=== PATIENT | female | born 1935 | race Caucasian/White ===

== ENCOUNTER → 2016-10-29 | Outpatient (CLI) | payer MEDICARE, BC ==
[2016-01-26 00:06] VITALS: BP 113/48
[~2016-10-29] MED LIST: ALLO300T PO; ASPI-630 PO; CHOL10003 PO; CRESTOR10 MG PO; FOLI0.8T33 PO; FURO40TA4 PO; LISI-338 PO; META-21 PO; METH4TAB2 PO; OMEG1CAP6 PO; OMEP20CA9 PO; POTA10TA31 PO
[2016-10-29 08:37] LABS: ALBUMIN 3.8 g/dL (3.4-5.0); ALBUMIN/GLOBULIN RATIO 1.1 (1.0-1.7); CALCIUM 9.3 mg/dL (8.5-10.1); CREATININE 1.3 mg/dL (0.6-1.0); GFR 39.2; POTASSIUM 3.9 mmol/L (3.5-5.1); TOTAL BILIRUBIN 0.4 mg/dL (0.2-1.0); TOTAL PROTEIN 7.4 g/dL (6.4-8.2)
== END | disposition home or self-care (01) ==
LOC: LAB 07:33
PROVIDERS: ATTEND Nurse Practitioner
DX: E78.5 Hyperlipidemia, unspecified (principal)
CPT/HCPCS: 36415; 80053; 80061

== ENCOUNTER 2016-11-06 10:31 | Emergency (ER) | payer MEDICARE, BC ==
[2016-11-06 10:35] VITALS: BP 125/54
--- NOTE | 2016-11-06 10:58 | PHYS DOC ---
Past History Past Medical History: Arthritis, GERD, High Cholesterol, Hypertension, Sciatica , UTI, Other Past Surgical History: Appendectomy, Cholecystectomy, Colectomy, Hysterectomy, Oophorectomy, Other Alcohol Use: None Drug Use: None Adult General Chief Complaint Chief Complaint: BACK PAIN OR INJURY [facility] Patient is a 81-year-old female with a three-week history of lower back pain that began spontaneously described as an ache. She's had in the past before which she takes Tylenol and Skelaxin which typically improve symptoms. She was seen 2 weeks ago by her primary care doctor and treated for UTI present on day 8 of of Macrobid. Although she admits she was never symptomatic with abdominal pain, dysuria, frequency or urgency. Her symptoms did improve. Days after starting antibiotics now return. She describes as a cramping 8 gets worse with bending over and walking. It's probably just on the left side not over the midline of the back. There is no bowel or bladder con's, no night sweats, no numbness and teething into her legs and no weakness. Patient denies a specific trauma although she says the pain is worse with rotational motion. Patient's pain presently about a 7 of 10 8 of 10 sitting here in the emergency department. Review of Systems Review of Systems Constitutional: Denies fever or chills [] Eyes: Denies change in visual acuity, redness, or eye pain [] HENT: Denies nasal congestion or sore throat [] Respiratory: Denies cough or shortness of breath [] Cardiovascular: No additional information not addressed in [facility] [] GI: Denies abdominal pain, nausea, vomiting, bloody stools or diarrhea [] : Denies dysuria or hematuria [] Musculoskeletal: Complains of lower back pain. Integument: Denies rash or skin lesions [] Neurologic: Denies headache, focal weakness or sensory changes [] Endocrine: Denies polyuria or polydipsia [] Allergies Allergies Allergies Coded Allergies Type Severity Reaction Last Updated Verified No Known Drug Allergies 03/02/15 No Physical Exam Physical Exam Constitutional: Well developed, well nourished, no acute distress, non-toxic appearance. [] HENT: Normocephalic, atraumatic,oropharynx moist, Eyes: PERRLA, EOMI, conjunctiva normal, no discharge. [] Neck: Normal range of motion, no tenderness, supple, no stridor. [] Cardiovascular:Heart rate regular rhythm, no murmur [] Lungs & Thorax: Bilateral breath sounds clear to auscultation [] Abdomen: Bowel sounds normal, soft, no tenderness, no masses, no pulsatile masses. [] Skin: Warm, dry, no erythema, no rash. [] Back: Patient has reproducible pain on the left erector spinae muscles of the lumbar spine. There is no rash, no focal tenderness to palpation over the midline of the T or L-spine. Extremities: No tenderness, no cyanosis, no clubbing, ROM intact, no edema. [] Neurologic: Alert and oriented X 3, normal motor function, normal sensory function, no focal deficits noted. She has normal proprioception strength lower extremities bilaterally 5 out of 5+ strength. +2 brisk capillary refill +2 peripheral pulses well [] Psychologic: Affect normal, judgement normal, mood normal. [] EKG EKG [] Radiology/Procedures Radiology/Procedures [] [place] [address] IMAGING REPORT Signed PATIENT: ARIADNA HO ACCOUNT: [id number] : 1935 LOCATION: ER AGE: 81 SEX: F EXAM STATUS: REG ER ORD. PHYSICIAN: ALEXANDREA ARMAS MD REASON: back pain PROCEDURE: LUMBAR SPINE 2-3V Lumbar spine, 3 views, 11/06/2016: History: Back pain There is a mild left convexity lumbar scoliosis. There are mild smooth concave endplate deformities at multiple levels. These appear to be chronic. There are moderate spurs in the upper lumbar and lower thoracic spine. There is moderate disc space narrowing at T12-L1 and L1-2. There are mild degenerative changes involving scattered facet joints. No acute fracture or dislocation is identified. IMPRESSION: 1. Mild to moderate scattered degenerative changes. 2. Mild lumbar scoliosis. 3. No acute bony abnormality is detected. DICTATED AND SIGNED BY: RICA MONTILLA MD DATE: 11/06/16 8506 CC: ALEXANDREA ARMAS MD; DOMINGO NÚÑEZ ~ Course & Med Decision Making Course & Med Decision Making Pertinent Labs and Imaging studies reviewed. (See chart for details) Patient presents with lower back pain. My back pain pneumonic considered. [] CRAFTI Cauda Equina Renal Stone AAA ruptured Fracture Tumor (TB, metastatic disease) Infection UTI, pyelonephritis, epidural abscess. Patient's spine symptoms have stabilized while they have been evaluated in the department and are appropriate for outpatient work up. No evidence of cauda equina, cord compression, infiltrative, or infectious etiology. Patient's x-ray demonstrates no potential fracture, patient on exam is normal, patient denies any fevers, night sweats, history of cancer would be metastatic in nature. Patient denies any UTI symptoms urine culture is pending patient still on antibiotics. She does not want to wait for urine culture results: Positive. Change antibiotics if appropriate. Assessment: Low back pain Disposition: PCP follow-up 12-24 hours for repeat evaluation if symptoms continue. Dragon Disclaimer Dragon Disclaimer This chart was dictated in whole or in part using Voice Recognition software in a busy, high-work load, and often noisy Emergency Department environment. It may contain unintended and wholly unrecognized errors or omissions. Departure Departure: Impression: Primary Impression: Back pain Disposition: HOME, SELF-CARE Condition: IMPROVED Referrals: DOMINGO NÚÑEZ (PCP) Patient Instructions: Back Exercises, Back Injury Prevention, Back Pain in Additional Instructions: Please return for any new or increasing symptoms, night sweats, new focal neurologic weakness or deficits or if you have any questions concerns. Please recur for the pain medications prescribed as they make you very sleepy possibly a fall risk. Please follow up with her primary care doctor in 48 hours if symptoms continue not improved. Scripts Hydrocodone Bit/Acetaminophen (HYDROCODONE-APAP 5-325 ) 1 Each Tablet 1 TAB PO PRN Q6HRS Y for PAIN for 3 Days, #10 TAB 0 Refills Prov: ALEXANDREA ARMAS MD 11/06/16 ALEXANDREA ARMAS MD Nov 06, 2016 10:58
[2016-11-06] MEDS ORDERED: HYDROmorphone PF 1 MG/ML DISP.SYRIN IM ONE (11:15)
--- NOTE | 2016-11-06 11:22 | RAD ---
Lumbar spine, 3 views, 11/06/2016: History: Back pain There is a mild left convexity lumbar scoliosis. There are mild smooth concave endplate deformities at multiple levels. These appear to be chronic. There are moderate spurs in the upper lumbar and lower thoracic spine. There is moderate disc space narrowing at T12-L1 and L1-2. There are mild degenerative changes involving scattered facet joints. No acute fracture or dislocation is identified. IMPRESSION: 1. Mild to moderate scattered degenerative changes. 2. Mild lumbar scoliosis. 3. No acute bony abnormality is detected.
[2016-11-06 11:26] LABS: BILIRUBIN,URINE NEG (NEG); CLARITY,URINE CLEAR; COLOR,URINE STRAW; GLUCOSE,URINE NEG (NEG)
[2016-11-06 11:27] LABS: NITRITE,URINE NEG (NEG); UROBILINOGEN,URINE 0.2 mg/dL (0.2 mg/dL)
[2016-11-06] MEDS ORDERED: HYDR-2758 PO (11:31)
== END 2016-11-06 11:35 | disposition home or self-care (01) ==
LOC: ER 10:31
DX: M54.5 Low back pain (principal); K21.9 Gastro-esophageal reflux disease without esophagitis; I10 Essential (primary) hypertension; E78.00 Pure hypercholesterolemia, unspecified; M19.90 Unspecified osteoarthritis, unspecified site; Z87.440 Personal history of urinary (tract) infections
CPT/HCPCS: 72100; 81003; 87086; 96372; 99285; J1170

== ENCOUNTER 2017-01-28 13:23 | Emergency (ER) | payer MEDICARE, BC ==
[~2017-01-28 13:23] MED LIST changes: +HYDR-2758 PO
[2017-01-28 13:34] VITALS: BP 130/65
--- NOTE | 2017-01-28 13:58 | RAD ---
Lumbar spine, 3 views, 01/28/2017: History: Back pain Comparison is made to a study from 11/06/2016. There is a mild lumbar scoliosis. The lumbar vertebral heights are well-maintained. There is mild narrowing of the L1-2 disc spaces well as multiple disc spaces in the lower thoracic spine. There are moderate scattered marginal spurs. There are mild degenerative changes involving scattered facet joints in the lumbar spine. There is a slight retrolisthesis at L2-3 due to facet joint arthropathy. Mild aortic calcific plaquing is present. IMPRESSION: 1. Mild to moderate multilevel degenerative changes. 2. No acute bony abnormality is detected.
--- NOTE | 2017-01-28 14:27 | PHYS DOC ---
General Chief Complaint: BACK PAIN - NO INJURY Stated Complaint: BACK SPASMS Time Seen by MD: 13:33 Source: patient, old records Exam Limitations: no limitations Problems: History of Present Illness Initial Comments Pt is 81/F to ED c/o back pain. Pt states last week she fell as her left knee buckled, fell forward hitting her head causing left facial bruising and LUE bruising. States she gets back spasms sometimes, today c/o severe 10/10 low back pain as she points to her right SI joint and lumbar spine. No leg weakness/saddle anesthesia/incontinence , says when her back gets bad she comes for her "shot." ED records indicate pt has been here once prior similar sx resolved with dilaudid 0.5mg IM. No other c /o, pt would like a shot and then discharge. Denies any MORALEZ for focal weakness resultant from the fall Timing/Duration: unsure Severity: severe Modifying Factors: improves with medication, worse with movement Associated Symptoms: other Allergies: Coded Allergies: No Known Drug Allergies (Unverified , 03/02/15) verified with the pt Past Medical History Medical History: no pertinent history Surgical History: noncontributory Social History Smoker: non-smoker Alcohol: none Drugs: none Review of Systems Constitutional: denies chills, denies fever EENTM: denies eye pain, denies blurred vision, denies ear discharge, denies nose congestion Respiratory: denies cough, denies shortness of breath Cardiovascular: denies chest pain, denies palpitations Gastrointestinal: denies abdominal pain, denies nausea, denies vomiting Genitourinary: denies dysuria, denies frequency, denies hematuria Musculoskeletal: see HPI, denies neck pain Psychiatric/Neurological: see HPI, denies headache, denies numbness, denies paresthesia, denies weakness Physical Exam General Appearance: no apparent distress Eyes: bilateral eye normal inspection, bilateral eye PERRL, bilateral eye EOMI Ear, Nose, Throat: hearing grossly normal, normal ENT inspection, other (NCAT, neg lopes/raccoon eyes, no ear/nose discharge no fluid behind TMs b/l) Neck: non-tender, supple Respiratory: normal breath sounds, no respiratory distress Cardiovascular: normal peripheral pulses, regular rate, rhythm Gastrointestinal: non tender, soft Back: no CVA tenderness, no vertebral tenderness Extremities: non-tender, normal inspection 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 PHYSICIAN: KAYY WEAVER DO REASON: fall, LBP PROCEDURE: LUMBAR SPINE 2-3V Lumbar spine, 3 views, 01/28/2017: History: Back pain Comparison is made to a study from 11/06/2016. There is a mild lumbar scoliosis. The lumbar vertebral heights are well-maintained. There is mild narrowing of the L1-2 disc spaces well as multiple disc spaces in the lower thoracic spine. There are moderate scattered marginal spurs. There are mild degenerative changes involving scattered facet joints in the lumbar spine. There is a slight retrolisthesis at L2-3 due to facet joint arthropathy. Mild aortic calcific plaquing is present. IMPRESSION: 1. Mild to moderate multilevel degenerative changes. 2. No acute bony abnormality is detected. DICTATED AND SIGNED BY: RICA MONTILLA MD DATE: 01/28/17 8138 CC: DOMINGO NÚÑEZ; KAYY WEAVER DO ~ UA unremarkable Pt advised she needs to f/u with PCP for future occurrances. Departure Time of Disposition: 14:45 Disposition: HOME, SELF-CARE Diagnosis: fall, low back strain Condition: GOOD Patient Instructions: Fall Prevention and Home Safety, [id number], Low Back Strain with Rehab-[facility] Additional Instructions: Take care with standing and walking, use a cane or assisted device as needed to prevent future falls. No driving or operating machinery while under the influence of sedative medication. Continue current medications. Heating pad 20 minutes at a time 4-6 times daily followed by gentle stretching. Take care not to fall asleep on the heating pad as you may burning herself. Follow-up with your doctor on Tuesday for recheck and physical therapy for further evaluation as needed. Return to ED with new or changing symptoms. KAYY WEAVER DO Jan 28, 2017 14:27
[2017-01-28 14:53] LABS: BACTERIA,URINE 0 /HPF (0-FEW); BILIRUBIN,URINE NEG (NEG); CLARITY,URINE CLEAR; COLOR,URINE YELLOW; GLUCOSE,URINE NEG (NEG); HYALINE CASTS, URINE OCC /HPF; NITRITE,URINE NEG (NEG); RBC,URINE 0 /HPF (0-2); SQUAMOUS EPITHELIAL CELL,UR OCC /LPF; UROBILINOGEN,URINE 0.2 mg/dL (0.2 mg/dL); WBC,URINE OCC /HPF (0-4)
[2017-01-28] MEDS ORDERED: HYDROmorphone PF 1 MG/ML DISP.SYRIN IM ONE (15:00)
== END 2017-01-28 15:24 | disposition home or self-care (01) ==
LOC: ER 13:23
DX: S39.012A Strain of muscle, fascia and tendon of lower back, initial encounter (principal); W18.09XA Striking against other object with subsequent fall, initial encounter; Y93.89 Activity, other specified; Y99.8 Other external cause status; Y92.89 Other specified places as the place of occurrence of the external cause
CPT/HCPCS: 72100; 81001; 96372; J1170; 99285-25

== ENCOUNTER 2017-06-13 11:18 | Emergency (ER) | payer MEDICARE, BC ==
[~2017-06-13] VITALS: Ht 162.6 cm; Wt 76.7 kg
--- NOTE | 2017-06-13 11:34 | PHYS DOC ---
General Chief Complaint: BACK PAIN OR INJURY Stated Complaint: BACK PAIN Time Seen by MD: 11:31 Source: patient, old records Exam Limitations: no limitations Problems: History of Present Illness Initial Comments Patient is an 82-year-old female who comes to the ED for back pain recurrence. Patient states that prior to arrival she was reaching to a high cabinet in the kitchen for a dish when she felt a twinge in her right mid back. She has had similar episodes like this before where she will get muscle spasms and has had several ED visits. She states symptoms are identical to prior exacerbations she denies any trauma or injury. No leg weakness no saddle anesthesia and no bowel or bladder symptoms. Pain is described as sharp and stabbing the 9 on a pain scale worse with certain movements better with some positions. Patient points to her right upper paraspinal region as a localization. No pre-arrival treatment no other complaints. Timing/Duration: 1-3 hours Severity: severe Modifying Factors: worse with movement, improves with rest Associated Symptoms: other Allergies: Coded Allergies: No Known Drug Allergies (Unverified , 03/02/15) verified with the pt Past Medical History Medical History: other (CHF, pneumonia, back spasms) Surgical History: noncontributory Social History Smoker: non-smoker Alcohol: none Drugs: none Review of Systems Constitutional: denies chills, denies diaphoresis, denies fever, denies malaise Respiratory: denies cough, denies shortness of breath Cardiovascular: denies chest pain, denies palpitations, denies syncope Gastrointestinal: denies abdominal pain, denies nausea, denies vomiting Genitourinary: denies dysuria, denies frequency, denies hematuria Musculoskeletal: see HPI, denies joint swelling, denies neck pain Psychiatric/Neurological: denies headache, denies numbness, denies paresthesia , denies pre-existing deficit, denies tingling, denies weakness Hematologic/Lymphatic: denies blood clots, denies easy bleeding, denies easy bruising Physical Exam General Appearance: WD/WN, no apparent distress Ear, Nose, Throat: hearing grossly normal, normal ENT inspection Neck: non-tender, supple Respiratory: normal breath sounds, no respiratory distress Cardiovascular: normal peripheral pulses, regular rate, rhythm Gastrointestinal: non tender, soft Back: no CVA tenderness, no vertebral tenderness Extremities: non-tender, normal inspection 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 Patient agrees to follow-up with Michael Lynch and expressed agreement and understanding with the treatment plan. Departure Time of Disposition: 12:43 Disposition: 01 HOME, SELF-CARE Diagnosis: lumbar strain Condition: GOOD Patient Instructions: Low Back Strain with Rehab-Sports[facility] Additional Instructions: Please review the patient education materials given by ED staff. Starting tomorrow may use heating pad 15 minutes 4-6 times daily followed by gentle stretching. [id number] ibuprofen for baseline discomfort. Prescription: Comptche 5 mg quantity 10 Follow-up with your doctor this week for recheck. Return to ED with new or changing symptoms. MICHAEL WEAVER DO Jun 13, 2017 11:34
[2017-06-13] MEDS ORDERED: HYDROcodone/APAP 7.5/325MG 1 TAB TABLET PO ONE (12:10)
[2017-06-13] MEDS ORDERED: HYDR-971 PO (12:41)
[2017-06-13 12:45] VITALS: BP 140/66
== END 2017-06-13 12:50 | disposition home or self-care (01) ==
LOC: ER 11:18
DX: S39.012A Strain of muscle, fascia and tendon of lower back, initial encounter (principal); I50.9 Heart failure, unspecified; X50.9XXA Other and unspecified overexertion or strenuous movements or postures, initial encounter; Y93.89 Activity, other specified; Y99.8 Other external cause status; Y92.090 Kitchen in other non-institutional residence as the place of occurrence of the external cause
CPT/HCPCS: 99283

== ENCOUNTER → 2017-08-11 | Outpatient (CLI) | payer MEDICARE, BC ==
[~2017-08-11] MED LIST changes: +HYDR-971 PO
--- NOTE | 2017-08-11 16:59 | RAD ---
Carotid ultrasound, 08/11/2017: History: Carotid stenosis Duplex evaluation of the carotid arteries in the neck was performed including grayscale, color-flow and spectral Doppler analysis. There is mild intimal thickening in the common carotid arteries with mild smooth plaquing at the carotid bifurcations. The peak systolic velocity in the right internal carotid artery is 96 cm/s with an end-diastolic velocity of 22 cm/s. The internal carotid to common carotid artery ratio on the right is 1.1. On the left the peak systolic velocity in the internal carotid artery is 99 cm/s with an end-diastolic velocity of 20 cm/s. The internal carotid to common carotid artery ratio on the left is 1.1. These Doppler findings do not suggest significant stenosis. Antegrade flow is present in both vertebral arteries in the neck. IMPRESSION: Mild smooth plaquing at both carotid bifurcations with underlying luminal narrowing in the 0-50% diameter range bilaterally. Note: Stenosis calculations for CTA, MRA and conventional angiography are based upon determination of the distal ICA diameter in accordance with the NASCET methodology. Stenosis calculations for Doppler studies are derived from validated velocity criteria which are known to correlate with NASCET methodology of determining stenosis.
== END | disposition home or self-care (01) ==
LOC: US 13:22
PROVIDERS: ATTEND Nurse Practitioner
DX: I65.22 Occlusion and stenosis of left carotid artery (principal); I13.0 Hypertensive heart and chronic kidney disease with heart failure and stage 1 through stage 4 chronic kidney disease, or unspecified chronic kidney disease; I50.9 Heart failure, unspecified; N18.3 Chronic kidney disease, stage 3 (moderate)
CPT/HCPCS: 93880

== ENCOUNTER → 2017-09-08 | Outpatient (CLI) | payer MEDICARE, BC ==
[2017-09-08 14:45] LABS: BASO % 0 % (0-3); EOS # 0.1 x10^3/uL (0.0-0.7); EOS % 2 % (0-3); HEMATOCRIT 37.7 % (36.0-47.0); HEMOGLOBIN 12.7 g/dL (12.0-15.5); LYMPH # 1.9 x10^3/uL (1.0-4.8); LYMPH % 29 % (24-48); MEAN CORPUSCULAR HEMOGLOBIN 32 pg (25-35); MEAN CORPUSCULAR HGB CONC 34 g/dL (31-37); MEAN CORPUSCULAR VOLUME 94 fL (79-100); MONO # 0.5 x10^3/uL (0.0-1.1); MONO % 8 % (0-9); NEUT # 3.9 x10^3uL (1.8-7.7); NEUT % 61 % (31-73); PLATELET COUNT 157 x10^3/uL (140-400); RED BLOOD COUNT 4.01 x10^6/uL (3.50-5.40); RED CELL DISTRIBUTION WIDTH 15.3 % (11.5-14.5); WHITE BLOOD COUNT 6.5 x10^3/uL (4.0-11.0)
[2017-09-08 14:51] LABS: ALBUMIN 3.6 g/dL (3.4-5.0); CALCIUM 8.9 mg/dL (8.5-10.1); CREATININE 1.1 mg/dL (0.6-1.0); GFR 47.4; PHOSPHORUS 3.5 mg/dL (2.6-4.7); POTASSIUM 3.6 mmol/L (3.5-5.1); URIC ACID 3.7 mg/dL (2.6-6.0)
[2017-09-09 07:12] LABS: CALCIUM PTH 8.9 mg/dL (8.7-10.3); PTH INTACT 54 pg/mL (15-65)
== END | disposition home or self-care (01) ==
LOC: LAB 13:25
PROVIDERS: ATTEND Internal Medicine Nephrology
DX: I13.0 Hypertensive heart and chronic kidney disease with heart failure and stage 1 through stage 4 chronic kidney disease, or unspecified chronic kidney disease (principal); I50.32 Chronic diastolic (congestive) heart failure; N18.3 Chronic kidney disease, stage 3 (moderate); E78.5 Hyperlipidemia, unspecified; E79.0 Hyperuricemia without signs of inflammatory arthritis and tophaceous disease; Z68.31 Body mass index [BMI] 31.0-31.9, adult
CPT/HCPCS: 36415; 80069; 83970; 84550; 85025

== ENCOUNTER → 2017-10-13 | Outpatient (CLI) | payer MEDICARE, BC ==
--- NOTE | 2017-10-13 16:55 | RAD ---
Bilateral knees, 4 views, 10/13/2017: HISTORY: Fall, knee pain There is mild narrowing of both knee joints with moderate marginal spurring. There is mild degenerative change at both patellofemoral articulations. No fracture or dislocation is identified. IMPRESSION: 1. Mild to moderate bilateral degenerative change. 2. No acute bony abnormality is detected. Electronically signed by: Toni Curry MD (10/13/2017 4:51 PM) [facility]
--- NOTE | 2017-10-13 16:55 | RAD ---
Bilateral knees, 4 views, 10/13/2017: HISTORY: Fall, knee pain There is mild narrowing of both knee joints with moderate marginal spurring. There is mild degenerative change at both patellofemoral articulations. No fracture or dislocation is identified. IMPRESSION: 1. Mild to moderate bilateral degenerative change. 2. No acute bony abnormality is detected. Electronically signed by: Toni Curry MD (10/13/2017 4:51 PM) [facility]
--- NOTE | 2017-10-13 16:55 | RAD ---
Bilateral knees, 4 views, 10/13/2017: HISTORY: Fall, knee pain There is mild narrowing of both knee joints with moderate marginal spurring. There is mild degenerative change at both patellofemoral articulations. No fracture or dislocation is identified. IMPRESSION: 1. Mild to moderate bilateral degenerative change. 2. No acute bony abnormality is detected. Electronically signed by: Toni Curry MD (10/13/2017 4:51 PM) [facility]
== END | disposition home or self-care (01) ==
LOC: PMG 09:34
PROVIDERS: ATTEND Physician Assistant
DX: M17.0 Bilateral primary osteoarthritis of knee (principal); M19.072 Primary osteoarthritis, left ankle and foot; M19.032 Primary osteoarthritis, left wrist
CPT/HCPCS: 73100; 73560; 73610

== ENCOUNTER 2017-11-29 07:43 | Emergency (ER) | payer MEDICARE, BC ==
[~2017-11-29] VITALS: Ht 162.6 cm; Wt 77.1 kg
[2017-11-29] MEDS ORDERED: HYDR-971 PO (08:19)
[2017-11-29] MEDS ORDERED: METH4TAB2 PO (08:19)
--- NOTE | 2017-11-29 08:19 | PHYS DOC ---
Past History Past Medical History: CHF, Hypertension, Pneumonia Past Surgical History: Other Alcohol Use: None Drug Use: None Adult General Chief Complaint Chief Complaint: BACK PAIN - NO INJURY HPI HPI 82-year-old female patient with history of previous episodes of low back muscle spasm and return ER visit because of this problem complaining of low back pain since yesterday as a constant throbbing pain like her previous episodes of muscle spasm of her back. Patient rated her pain 9/10 and denies focal neuro deficit, urine and bowel incontinence, fever and chills, abdominal pain. She states she took oral trauma muscle relaxant without improvement of her pain. Review of Systems Review of Systems Constitutional: Denies fever or chills [] Eyes: Denies change in visual acuity, redness, or eye pain [] HENT: Denies nasal congestion or sore throat [] Respiratory: Denies cough or shortness of breath [] Cardiovascular: No additional information not addressed in HPI [] GI: Denies abdominal pain, nausea, vomiting, bloody stools or diarrhea [] : Denies dysuria or hematuria [] Musculoskeletal: Reports back pain, denies joint pain [] Integument: Denies rash or skin lesions [] Neurologic: Denies headache, focal weakness or sensory changes [] Endocrine: Denies polyuria or polydipsia [] All other systems were reviewed and found to be within normal limits, except as documented in this note. Current Medications Current Medications Current Medications Medications (Trade) Dose Ordered Sig/Kristine Start Time Stop Time Status Last Admin Dose Admin Fentanyl Citrate (Fentanyl 2ml Vial) 50 mcg 1X ONCE 11/29/17 08:15 11/29/17 08:16 UNV Allergies Allergies Allergies Coded Allergies Type Severity Reaction Last Updated Verified No Known Drug Allergies 03/02/15 No Physical Exam Physical Exam Constitutional: Well developed, well nourished, mild distress, non-toxic appearance. [] HENT: Normocephalic, atraumatic Eyes: PERRLA, EOMI, conjunctiva normal, no discharge. [] Neck: Normal range of motion, no tenderness, supple, no stridor. [] Cardiovascular:Heart rate regular rhythm, no murmur [] Lungs & Thorax: Bilateral breath sounds clear to auscultation [] Abdomen: Bowel sounds normal, soft, no tenderness, no masses, no pulsatile masses. [] Skin: Warm, dry, no erythema, no rash. [] Back: No midline tenderness, right paraspinal muscular spasm and mild tenderness , limited range of motion because of pain, no CVA tenderness. [] Extremities: No tenderness, no cyanosis, no clubbing, ROM intact, no edema. [] Neurologic: Alert and oriented X 3, normal motor function, normal sensory function, no focal deficits noted. [] Psychologic: Affect normal, judgement normal, mood normal. [] EKG EKG [] Radiology/Procedures Radiology/Procedures [] Course & Med Decision Making Course & Med Decision Making discharge: I've spoken with the patient and/or caregivers. I've explained the patient's condition, diagnosis and treatment plan based on information available to me at this time. I've answered the patient's and/or caregivers questions and addressed any concerns. The patient and/or caregivers have a good understanding the patient's diagnosis, condition and treatment plan as can be expected at this point. Vital signs have been stabilized. The patient's condition is stable for discharge from the emergency department. The patient will pursue further outpatient evaluation with her primary care provider or other designated consulting physician as outlined in the discharge instructions. Patient and/or caregivers are agreeable to this plan of care and follow-up instructions have been explained in detail. The patient and/or caregivers have received these instructions in written format and expressed understanding of these discharge instructions. The patient and her caregivers are aware that if any significant change in condition or worsening of symptoms should prompt him to immediately return to this of the closest emergency department. If an emergent department is not readily available I would encourage him to call 911. Alessandro Disclaimer Dragon Disclaimer This electronic medical record was generated, in whole or in part, using a voice recognition dictation system. Departure Departure: Impression: Primary Impression: Acute lumbar myofascial strain Additional Impressions: Lumbar paraspinal muscle spasm Urinary tract infection Disposition: HOME, SELF-CARE (At 0830) Condition: IMPROVED Referrals: DOMINGO NÚÑEZ (PCP) Patient Instructions: Lumbosacral Strain, Urinary Tract Infection Additional Instructions: Apply ice on your back Follow-up with your primary care physician in 3-5 days Return to ER if not getting better Scripts Ciprofloxacin Hcl (CIPRO) 250 Mg Tablet 1 TAB PO BID, #6 TAB Prov: BESS MONTE MD 11/29/17 Methylprednisolone (MEDROL) 4 Mg Tab.ds.pk 1 PKG PO UD, #1 PKG Prov: BESS MONTE MD 11/29/17 Hydrocodone Bit/Acetaminophen (NORCO 5-325 TABLET) 1 Each Tablet 1 TAB PO PRN Q6HRS PRN for PAIN, #14 TAB 0 Refills Prov: BESS MONTE MD 11/29/17 Problem Qualifiers BESS MONTE MD Nov 29, 2017 08:19
[2017-11-29] MEDS ORDERED: CIPR250T30 PO (08:23)
[2017-11-29 08:43] LABS: BILIRUBIN,URINE NEG (NEG); CLARITY,URINE CLEAR; COLOR,URINE YELLOW
[2017-11-29 08:44] LABS: BACTERIA,URINE 0 /HPF (0-FEW); GLUCOSE,URINE NEG (NEG); HYALINE CASTS, URINE OCC /HPF; NITRITE,URINE NEG (NEG); RBC,URINE 0 /HPF (0-2); SQUAMOUS EPITHELIAL CELL,UR OCC /LPF; UROBILINOGEN,URINE 0.2 mg/dL (0.2 mg/dL); WBC,URINE 0 /HPF (0-4)
[2017-11-29 08:50] VITALS: BP 124/56
== END 2017-11-29 08:55 | disposition home or self-care (01) ==
LOC: ER 07:43
DX: S39.012A Strain of muscle, fascia and tendon of lower back, initial encounter (principal); N39.0 Urinary tract infection, site not specified; I11.0 Hypertensive heart disease with heart failure; I50.9 Heart failure, unspecified; X58.XXXA Exposure to other specified factors, initial encounter; Y93.89 Activity, other specified; Y99.8 Other external cause status; Y92.89 Other specified places as the place of occurrence of the external cause
CPT/HCPCS: 81001; 96372; 99284; J3010; 87086

== ENCOUNTER 2017-12-09 09:18 | Emergency (ER) | payer MEDICARE, BC ==
[~2017-12-09] VITALS: Ht 162.6 cm; Wt 85.7 kg
[~2017-12-09 09:18] MED LIST changes: +CIPR250T30 PO
[2017-12-09 09:23] VITALS: BP 147/65
[2017-12-09] MEDS ORDERED: diazePAM 5 MG TABLET PO ONE (09:45)
[2017-12-09] MEDS ORDERED: diazePAM 2 MG TABLET PO ONE (10:10)
[2017-12-09] MEDS ORDERED: MORPHINE SULFATE 5 MG/ML SYRINGE. IM ONE (10:10)
[2017-12-09] MEDS ORDERED: DIAZ2TAB PO (10:43)
--- NOTE | 2017-12-09 10:58 | ED.ADGEN ---
Past History Past Medical History: CHF, Hypertension, Pneumonia, Renal Disease Past Surgical History: Other Alcohol Use: None Drug Use: None Adult General HPI HPI Patient is a 82 year old female who presents with back pain. Patient complains of pain over the right posterior rib cage. She did not have any recent trauma. She has been having this pain for several weeks. She has no recent illness, fever, cough. She was evaluated in this ER already for the exact same symptoms. Review of Systems Review of Systems Constitutional: Denies fever or chills Eyes: Denies change in visual acuity HENT: Denies nasal congestion Respiratory: Denies cough or shortness of breath Cardiovascular: No additional information GI: Denies abdominal pain, nausea : Denies dysuria or hematuria Musculoskeletal: Denies other joint pain Integument: Denies rash Neurologic: Denies headache Endocrine: Denies polyuria All other systems were reviewed and found to be within normal limits, except as documented in this note. Current Medications Current Medications Current Medications Medications (Trade) Dose Ordered Sig/Kristine Start Time Stop Time Status Last Admin Dose Admin Diazepam (Valium) 2 mg 1X ONCE 12/09/17 10:10 12/09/17 10:11 DC 12/09/17 09:45 2 MG Morphine Sulfate (Morphine 5mg Syringe) 5 mg 1X ONCE 12/09/17 10:10 12/09/17 10:11 DC 12/09/17 09:46 5 MG Allergies Allergies Allergies Coded Allergies Type Severity Reaction Last Updated Verified No Known Drug Allergies 03/02/15 No Physical Exam Physical Exam Constitutional: Well developed, well nourished, no acute distress HENT: Normocephalic, atraumatic, bilateral external ears normal Eyes: PERRLA, EOMI, conjunctiva normal Neck: Normal range of motion, no tenderness Cardiovascular:Heart rate regular rhythm Lungs & Thorax: Bilateral breath sounds clear Abdomen: Bowel sounds normal, soft Skin: Warm, dry, no erythema Back: No tenderness, + point tenderness over right posterior rib cage. palpation to this area reproduces the patient's presenting symptoms Extremities: No edema Neurologic: Alert and oriented X 3 Psychologic: Affect normal Current Patient Data Vital Signs Vital Signs Date Time Temp Pulse Resp B/P (MAP) Pulse Ox O2 Delivery O2 Flow Rate FiO2 12/09/17 09:23 Room Air 12/09/17 09:23 97.6 74 20 98 EKG EKG [] Radiology/Procedures Radiology/Procedures [] Course & Med Decision Making Course & Med Decision Making Pertinent Labs and Imaging studies reviewed. (See chart for details) Patient is seen and examined. She was evaluated in this ER on 11/19 for the exact same symptoms. At that time, she was treated with cipro for UTI although urine was not overtly infected. She was also seen in f/u by her PCP and did discuss possible need for physical therapy although this has not yet been pursued. Ddx includes kidney stone, UTI, MSK pain, aortic dissection, rib fracture. Already treated for UTI and no symptoms. no hematuria. No severe pain. Not significantly hypertensive. Physical exam positive for point tenderness as described above. Could represent occult rib fx but tx would not change. Vicodin at home has not been relieving her pain. Plan in ER today is to give meds for sx control and re-assess. 10:50: Patient currently much improved and able to move/ambulate better when compared to admission. Her is present to drive her home today. Plan is for d/c and patient is agreeable. She is given some valium to use at home as needed for muscle spasms. use of this medication as described and fall precautions are also reviewed with the patient. All of her questions are answered prior to discharge home. Final Impression Final Impression Musculoskeletal Back Pain Alessandro Disclaimer Alessandro Disclaimer This electronic medical record was generated, in whole or in part, using a voice recognition dictation system. DEDE SEAMAN DO Dec 09, 2017 10:58
== END 2017-12-09 10:45 | disposition home or self-care (01) ==
LOC: ER 09:18
DX: M54.89 Other dorsalgia (principal); R07.81 Pleurodynia; I11.0 Hypertensive heart disease with heart failure; I50.9 Heart failure, unspecified; N28.9 Disorder of kidney and ureter, unspecified
CPT/HCPCS: 96372; 99283; J2270

== ENCOUNTER → 2017-12-16 | Outpatient (CLI) | payer MEDICARE, BC ==
[2017-12-09 09:23] VITALS: BP 147/65
[~2017-12-16] MED LIST changes: +DIAZ2TAB PO
--- NOTE | 2017-12-21 13:52 | RAD ---
3d digital tomography Bilateral History: Routine screening Technique: Bilateral 3d digital tomographic views were obtained. In addition, CAD - computer aided detection was utilized. Comparison: 10/07/2015, 09/23/2014, 09/11/2013. Findings: Breast Tissue Density C : The breast tissue is heterogeneously dense. Scattered fibroglandular elements may obscure underlying pathology. There are no suspicious masses, microcalcifications or areas of architectural distortion. Impression: No suspicious findings. BI-RADS Category 1: Negative. Recommendation: In the absence of new clinical symptoms or change in physical exam, annual screening mammography is recommended. The patient will receive a letter with the results in the mail. Your mammogram demonstrates that you have dense breast tissue, which could hide abnormalities, and if you have other risk factors for breast cancer that have been identified, you might benefit from supplemental screening tests that may be suggested by your ordering physician. Dense breast tissue, in and of itself, is a relatively common condition. This information is not provided to cause undue concern, but rather to raise your awareness and to promote discussion with your physician regarding the presence of other risk factors, in addition to dense breast tissue. A report of your mammography results will be sent to you and your physician. You should contact your physician if you have any questions or concerns regarding this report. A mammogram does not have 100% sensitivity and therefore a negative imaging study should not delay further work up of a suspicious abnormality. Patient information is entered into the [facility] reminder system using [employer] with a target due date for the next screening mammogram. The patient will receive a reminder. "Our facility is accredited by the [employer] Mammography Program."
== END | disposition home or self-care (01) ==
LOC: MAMMO 14:41
PROVIDERS: ATTEND Physician Assistant
DX: Z12.31 Encounter for screening mammogram for malignant neoplasm of breast (principal); I13.0 Hypertensive heart and chronic kidney disease with heart failure and stage 1 through stage 4 chronic kidney disease, or unspecified chronic kidney disease; I50.9 Heart failure, unspecified; N18.3 Chronic kidney disease, stage 3 (moderate); E78.2 Mixed hyperlipidemia; E78.00 Pure hypercholesterolemia, unspecified; K21.9 Gastro-esophageal reflux disease without esophagitis; Z90.722 Acquired absence of ovaries, bilateral; Z90.49 Acquired absence of other specified parts of digestive tract; Z90.710 Acquired absence of both cervix and uterus
CPT/HCPCS: 77063; 77067

== ENCOUNTER → 2018-02-03 | Outpatient (CLI) | payer MEDICARE, BC ==
[2018-02-03 09:18] LABS: ALBUMIN 3.6 g/dL (3.4-5.0); ALBUMIN/GLOBULIN RATIO 1.1 (1.0-1.7); CALCIUM 9.3 mg/dL (8.5-10.1); CREATININE 1.2 mg/dL (0.6-1.0); GFR 42.9; TOTAL BILIRUBIN 0.5 mg/dL (0.2-1.0); TOTAL PROTEIN 6.9 g/dL (6.4-8.2)
== END | disposition home or self-care (01) ==
LOC: LAB 07:53
PROVIDERS: ATTEND Nurse Practitioner
DX: E78.5 Hyperlipidemia, unspecified (principal)
CPT/HCPCS: 36415; 80053; 80061

== ENCOUNTER 2018-03-02 15:33 | Emergency (ER) | payer MEDICARE, BC ==
--- NOTE | 2018-03-02 15:50 | PHYS DOC ---
Past History Past Medical History: CHF, Hypertension, Pneumonia, Renal Disease Past Surgical History: Other Alcohol Use: None Drug Use: None Adult General HPI HPI Patient is an 82-year-old female with a past history of recurrent, chronic back pain who presents to the emergency department for evaluation. She states she is having spasms in her left lower back, which is exactly same as her prior recurrent episodes of back pain. She states this episode started this morning. She states normally a "cortisone shot" helps her. She denies any incontinence, saddle anesthesia, numbness, weakness. She is able to family without significant difficulty. She denies any abdominal pain. She has not had any fevers or chills or any recent injuries. Movement and palpation of her left back worsens her pain. There are no alleviating factors to her symptoms. Review of Systems Review of Systems Constitutional: Denies fever or chills [] Respiratory: Denies cough or shortness of breath [] Cardiovascular: The patient denies any shortness of breath, chest pain, palpitations, or orthopnea[] GI: Denies abdominal pain, nausea, vomiting, bloody stools or diarrhea [] : Denies dysuria or hematuria [] Musculoskeletal: Denies back pain or joint pain [] Integument: Denies rash or skin lesions [] Neurologic: Denies headache, focal weakness or sensory changes , denies incontinence, numbness, or weakness.[] Endocrine: Denies polyuria or polydipsia [] Current Medications Current Medications Current Medications Medications (Trade) Dose Ordered Sig/[facility] Start Time Stop Time Status Last Admin Dose Admin Dexamethasone Sodium Phosphate (Decadron) 4 mg 1X ONCE 03/02/18 16:00 03/02/18 16:01 UNV Diazepam (Valium) 5 mg 1X ONCE 03/02/18 16:00 03/02/18 16:01 UNV Allergies Allergies Allergies Coded Allergies Type Severity Reaction Last Updated Verified No Known Drug Allergies 03/02/15 No Physical Exam Physical Exam PHYSICAL EXAM: CONSTITUTIONAL: Well developed, well nourished. The patient is nontoxic- appearing, appears very pleasant. HEAD: normocephalic, atraumatic EENT: PERRL, EOMI. Conjunctivae normal color, sclerae non-icteric; moist mucous membranes. NECK: Supple, non-tender; no meningismus. LUNGS: Lungs CTA, breathing even and unlabored. Normal air movement. HEART: Regular rate and rhythm, no murmur CHEST: No deformity; non-tender ABDOMEN: The abdomen is soft, and non-tender, no masses or bruits. They aorta is not palpable and there is no exam evidence of aortic aneurysm. EXTREM: Normal ROM; no deformity, no calf tenderness. Normal pulses palpable in all extremities. There is no pedal edema. SKIN: No rash; no diaphoresis NEURO: Alert; normal speech and cognition; CN's grossly intact; strength grossly intact without focal deficit. BACK: No CVA TTP. There is mild tenderness to palpation to the soft tissues of the left lateral lower lumbar spine, and left lower sacral area. There is no midline vertebral tenderness to palpation or step-off. EKG EKG [] Radiology/Procedures Radiology/Procedures [] Course & Med Decision Making Course & Med Decision Making 4:30 PM: Patient's prior spinal imaging has been reviewed. She is feeling better at this time. She is ambulatory with a stable gait. I discussed home care plan, the need for close PCP follow-up and return precautions. Dragon Disclaimer Dragon Disclaimer This electronic medical record was generated, in whole or in part, using a voice recognition dictation system. Departure Departure: Impression: Primary Impression: Back pain Disposition: 01 HOME, SELF-CARE Condition: STABLE Referrals: DOMINGO NÚÑEZ (PCP) Patient Instructions: Back Pain, Adult Additional Instructions: Acetaminophen 650 mg every 6 hours may help improve your symptoms. Applying a heating pad to the affected area may help improve your symptoms. The prescribed medications may cause drowsiness-use caution while taking. Scripts Diazepam (VALIUM) 2 Mg Tablet 2 MG PO TID PRN for MUSCLE SPASMS, #15 TAB Prov: LUIS EDUARDO PATEL MD 03/02/18 LUIS EDUARDO PATEL MD Mar 02, 2018 15:50
[2018-03-02] MEDS ORDERED: DEXAMETHASONE SOD PHOS 4 MG/ML VIAL IM ONE (16:00)
[2018-03-02] MEDS ORDERED: diazePAM 5 MG TABLET PO ONE (16:00)
[2018-03-02 16:09] VITALS: BP 145/62
[2018-03-02] MEDS ORDERED: DIAZ2TAB PO (16:30)
== END 2018-03-02 16:36 | disposition home or self-care (01) ==
LOC: ER 15:33
DX: G89.29 Other chronic pain (principal); M54.5 Low back pain; I11.0 Hypertensive heart disease with heart failure; I50.9 Heart failure, unspecified
CPT/HCPCS: 96372; 99283; J1100

== ENCOUNTER 2018-05-14 16:38 | Emergency (ER) | payer MEDICARE, BC ==
[~2018-05-14] VITALS: Ht 162.6 cm; Wt 80.0 kg
[~2018-05-14 16:38] MED LIST changes: +HYDR-2155 PO; -HYDR-2758 PO; +HYDR-3165 PO; -HYDR-971 PO
[2018-05-14 17:07] VITALS: BP 137/70
[2018-05-14] MEDS ORDERED: CIPR250T30 PO (17:54)
[2018-05-14] MEDS ORDERED: MAGN296S9 PO (17:54)
[2018-05-14] MEDS ORDERED: HYDR-3165 PO (17:54)
--- NOTE | 2018-05-14 17:55 | PHYS DOC ---
Past History Past Medical History: Heart Disease, Hypertension Past Surgical History: Appendectomy, Cholecystectomy, Hysterectomy Smoking: Non-smoker Alcohol Use: None Drug Use: None Adult General Chief Complaint Chief Complaint: HIP PAIN HPI HPI Patient is a 82 year old female who presents with complaining of right hip and back area pain. Patient states she has had frequent cough for about 10 days and complaining of pain in right hip and flank area at the same time with episodes of cough. Patient states her cough improved with medication given by her primary care physician but her pain is not getting better. Patient complaining of constant right groin pain that getting force with movement and cough. Patient denies fever and chills, focal neuro deficit, fall and injury, urinary symptom. Review of Systems Review of Systems Constitutional: Denies fever or chills [] Eyes: Denies change in visual acuity, redness, or eye pain [] HENT: Denies nasal congestion or sore throat [] Respiratory: Reports cough, denies shortness of breath Cardiovascular: No additional information not addressed in HPI [] GI: Denies abdominal pain, nausea, vomiting, bloody stools or diarrhea [] : Denies dysuria or hematuria [] Musculoskeletal: Reports back pain and joint pain Integument: Denies rash or skin lesions [] Neurologic: Denies headache, focal weakness or sensory changes [] Endocrine: Denies polyuria or polydipsia [] All other systems were reviewed and found to be within normal limits, except as documented in this note. Allergies Allergies Allergies Coded Allergies Type Severity Reaction Last Updated Verified No Known Drug Allergies 03/02/15 No Physical Exam Physical Exam Constitutional: Well developed, well nourished, mild distress, non-toxic appearance. [] HENT: Normocephalic, atraumatic Eyes: PERRLA, EOMI, conjunctiva normal, no discharge. [] Neck: Normal range of motion, no tenderness, supple, no stridor. [] Cardiovascular:Heart rate regular rhythm, no murmur [] Lungs & Thorax: Bilateral breath sounds clear to auscultation [] Abdomen: Bowel sounds normal, soft, no tenderness, no masses, no pulsatile masses. [] Skin: Warm, dry, no erythema, no rash. [] Back: No midline tenderness, right paraspinal muscle tenderness no CVA tenderness. [] Extremities: No tenderness, muscle tenderness in right hip area, no cyanosis, no clubbing, ROM intact, no edema. [] Neurologic: Alert and oriented X 3, normal motor function, normal sensory function, no focal deficits noted. [] Psychologic: Affect normal, judgement normal, mood normal. [] Current Patient Data Vital Signs Vital Signs Date Time Temp Pulse Resp B/P (MAP) Pulse Ox O2 Delivery O2 Flow Rate FiO2 05/14/18 17:07 98.2 82 18 95 Room Air EKG EKG [] Radiology/Procedures Radiology/Procedures [address] [id number] IMAGING REPORT Signed PATIENT: ARIADNA HO ACCOUNT: [id number] : 1935 LOCATION: ER AGE: 82 SEX: F EXAM STATUS: DEP ER ORD. PHYSICIAN: BESS MONTE MD REASON: pain PROCEDURE: HIP RIGHT 1 VIEW WITH PELVIS EXAM: Lumbar spine, 3 views; pelvis and right hip, 3 views. HISTORY: Pain. COMPARISON: 01/28/2017. FINDINGS: Lumbar spine: Frontal, lateral and coned sacral views of the lumbar spine are obtained. There is lumbar levoscoliosis centered at L3. There is mild retrolisthesis of and L1 on L2 and L2 on L3 and L3 on L4. There is degenerative endplate remodeling with anterior osteophytosis at the lower thoracic and upper lumbar levels. There is no fracture. Pelvis and right hip: A frontal view the pelvis and frontal and frog-leg views of the right hip are obtained. There is no fracture, dislocation or subluxation. IMPRESSION: 1. Multilevel degenerative change within the lumbar spine. This is primarily at the lower thoracic and upper lumbar levels. 2. Mild lumbar scoliosis. 3. No acute osseous finding. Electronically signed by: Aziza Hall MD (05/14/2018 6:54 PM) [facility] DICTATED AND SIGNED BY: AZIZA HALL MD DATE: 05/14/18 0754 CC: BESS MONTE MD; DOMINGO NÚÑEZ ~ Course & Med Decision Making Course & Med Decision Making Pertinent Labs and Imaging studies reviewed. (See chart for details) Evaluation of patient in ER showed 81-year-old female patient with complaining of right hip area and back pain for about 10 days after had a cough. Dip UA showed trace leukocytes. X-ray of lumbar spine and right hip with pelvis showed moderate amount of stool without acute finding. Patient treated with Harlan in ER and felt better. Patient stated home, that did not help for her pain. Plan discharge patient home to diagnose of lumbosacral strain, constipation and musculoskeletal pain of hip area. Dragon Disclaimer Dragon Disclaimer This electronic medical record was generated, in whole or in part, using a voice recognition dictation system. Departure Departure: Impression: Primary Impression: Lumbosacral strain Additional Impressions: Constipation Urinary tract infection Disposition: HOME, SELF-CARE (at 1800) Condition: IMPROVED Referrals: DOMINGO NÚÑEZ (PCP) Patient Instructions: Constipation, Adult, Lumbosacral Strain, Urinary Tract Infection Additional Instructions: Drink plenty of liquids Follow-up with your primary care physician in 3-5 days Return to ER if not getting better Scripts Hydrocodone Bit/Acetaminophen (NORCO 5-325 TABLET) 1 Each Tablet 1 TAB PO PRN Q6HRS PRN for PAIN, #14 TAB 0 Refills Prov: BESS MONTE MD 05/14/18 Magnesium Citrate (MAGNESIUM CITRATE) 296 Ml Solution 148 ML PO ONCE PRN for constipation, #296 ML Prov: BESS MONTE MD 05/14/18 Ciprofloxacin Hcl (CIPRO) 250 Mg Tablet 1 TAB PO BID for urinary tract infection, #6 TAB Prov: BESS MONTE MD 05/14/18 Problem Qualifiers BESS MONTE MD May 14, 2018 17:54
[2018-05-14 18:30] LABS: BILIRUBIN,URINE NEG (NEG); CLARITY,URINE CLEAR; COLOR,URINE YELLOW; GLUCOSE,URINE NEG (NEG); NITRITE,URINE NEG (NEG); UROBILINOGEN,URINE 0.2 mg/dL (0.2 mg/dL)
--- NOTE | 2018-05-14 18:58 | RAD ---
EXAM: Lumbar spine, 3 views; pelvis and right hip, 3 views. HISTORY: Pain. COMPARISON: 01/28/2017. FINDINGS: Lumbar spine: Frontal, lateral and coned sacral views of the lumbar spine are obtained. There is lumbar levoscoliosis centered at L3. There is mild retrolisthesis of and L1 on L2 and L2 on L3 and L3 on L4. There is degenerative endplate remodeling with anterior osteophytosis at the lower thoracic and upper lumbar levels. There is no fracture. Pelvis and right hip: A frontal view the pelvis and frontal and frog-leg views of the right hip are obtained. There is no fracture, dislocation or subluxation. IMPRESSION: 1. Multilevel degenerative change within the lumbar spine. This is primarily at the lower thoracic and upper lumbar levels. 2. Mild lumbar scoliosis. 3. No acute osseous finding. Electronically signed by: Aziza Orosco MD (05/14/2018 6:54 PM) [facility]
== END 2018-05-14 18:08 | disposition home or self-care (01) ==
LOC: ER 16:38
DX: S39.012A Strain of muscle, fascia and tendon of lower back, initial encounter (principal); M25.551 Pain in right hip; N39.0 Urinary tract infection, site not specified; K59.00 Constipation, unspecified; R05 Cough; M41.86 Other forms of scoliosis, lumbar region; I11.9 Hypertensive heart disease without heart failure; X58.XXXA Exposure to other specified factors, initial encounter; Y93.89 Activity, other specified; Y92.89 Other specified places as the place of occurrence of the external cause; Y99.8 Other external cause status
CPT/HCPCS: 72100; 73501; 81003; 99283

== ENCOUNTER → 2018-07-06 | Outpatient (CLI) | payer MEDICARE, BC ==
[~2018-07-06] MED LIST changes: +CYCL5TAB PO; +MAGN296S9 PO; +MELO7.5T29 PO
--- NOTE | 2018-07-06 12:56 | RAD ---
EXAM: Right foot, 3 views. HISTORY: Fracture follow-up. COMPARISON: None. FINDINGS: 3 views of the right foot are obtained. There is no acute fracture, dislocation or subluxation. There is a hallux valgus deformity and mild first metatarsophalangeal osteoarthritis. There is a small plantar spur and enthesopathy at the Achilles tendon insertion. There is a mild suspected second hammertoe deformity. IMPRESSION: 1. No acute osseous finding. 2. 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 Electronically signed by: Aziza Orosco MD (07/06/2018 12:52 PM) [place] [id number]
== END | disposition home or self-care (01) ==
LOC: DXRAD 11:23
PROVIDERS: ATTEND Podiatrist Foot & Ankle Surgery
DX: M19.071 Primary osteoarthritis, right ankle and foot (principal); M20.11 Hallux valgus (acquired), right foot; M77.31 Calcaneal spur, right foot
CPT/HCPCS: 73630

== ENCOUNTER → 2018-08-29 | Outpatient (CLI) | payer MEDICARE, BC ==
--- NOTE | 2018-08-29 15:32 | RAD ---
Renal ultrasound study without comparison for cystitis and hematuria. TECHNIQUE AND FINDINGS: Real-time grayscale and color Doppler evaluation of the kidneys and urinary bladder is performed. The right kidney measures 9.3 x 3.9 cm, and the left kidney measures 10.9 x 5.3 cm. There is a 1 cm simple appearing cyst involving the upper pole the left kidney, and there is a second 8 mm exophytic cyst arising from the midpole the left kidney, which appears to have some internal echoes. This may be a complex cyst, but at this small size it is difficult to fully characterize. No hydronephrosis involving either kidney. Normal color flow to both kidneys. The urinary bladder is fluid distended and grossly unremarkable. Bilateral ureteral jets are present. IMPRESSION: 1. No sonographically discernible acute renal or urinary bladder abnormality. 2. Simple left renal cyst at the upper pole. 3. Equivocal exophytic 8 mm cyst at the midpole left kidney. Given its small size, this is almost certainly benign. Electronically signed by: Declan Gutiérrez MD (08/29/2018 3:29 PM) [facility]
== END | disposition home or self-care (01) ==
LOC: US 08:55
PROVIDERS: ATTEND Physician Assistant
DX: N28.1 Cyst of kidney, acquired (principal); N30.21 Other chronic cystitis with hematuria
CPT/HCPCS: 76770

== ENCOUNTER 2018-09-03 07:38 | Emergency (ER) | payer MEDICARE, BC ==
[~2018-09-03] VITALS: Ht 162.6 cm; Wt 80.0 kg
[2018-09-03 07:38] VITALS: BP 130/49
[~2018-09-03 07:38] MED LIST changes: -CYCL5TAB PO; -MELO7.5T29 PO
[2018-09-03] MEDS ORDERED: CYCL5TAB PO (08:09)
[2018-09-03] MEDS ORDERED: MELO7.5T29 PO (08:09)
--- NOTE | 2018-09-03 08:11 | PHYS DOC ---
Past History Past Medical History: Arthritis, Heart Disease, Hypertension, Renal Disease, Renal Failure Past Surgical History: Appendectomy, Cholecystectomy, Hysterectomy Smoking: Non-smoker Alcohol Use: None Drug Use: None Adult General Chief Complaint Chief Complaint: DIARRHEA HPI HPI Patient is a 3-year-old female presents with right-sided low back pain. This has been present for the past month. No relief with home medicines. No new loss of bowel or bladder control. Patient has been using Voltaren gel on her knees during this time and has noted some diarrhea during this same time frame of a month. No blood in the stool. No fever. No specific abdominal pain. Patient was on antibiotics for urinary tract infection just prior to this.[] Review of Systems Review of Systems Constitutional: Denies fever or chills [] Eyes: Denies change in visual acuity, redness, or eye pain [] HENT: Denies nasal congestion or sore throat [] Respiratory: Denies cough or shortness of breath [] Cardiovascular: No additional information not addressed in HPI [] GI: Denies abdominal pain, nausea, vomiting, bloody stools [] : Denies dysuria or hematuria [] Musculoskeletal: See history of present illness, denies other joint pain beyond what is noted in the history of present illness [] Integument: Denies rash or skin lesions [] Neurologic: Denies headache, focal weakness or sensory changes [] Endocrine: Denies polyuria or polydipsia [] All other systems were reviewed and found to be within normal limits, except as documented in this note. Allergies Allergies Allergies Coded Allergies Type Severity Reaction Last Updated Verified No Known Drug Allergies 03/02/15 No Physical Exam Physical Exam Constitutional: Well developed, well nourished, no acute distress, non-toxic appearance. [] HENT: Normocephalic, atraumatic, bilateral external ears normal, oropharynx moist, no oral exudates, nose normal. [] Eyes: PERRLA, EOMI, conjunctiva normal, no discharge. [] Neck: Normal range of motion, no tenderness, supple, no stridor. [] Cardiovascular:Heart rate regular rhythm, no murmur [] Lungs & Thorax: Bilateral breath sounds clear to auscultation [] Abdomen: Bowel sounds normal, soft, no tenderness, no masses, no pulsatile masses. [] Skin: Warm, dry, no erythema, no rash. [] Back: Tenderness and spasm in the right lumbar paraspinal musculature, decreased sidebending to the left, normal gait, no Azalea's signs, no midline tenderness to palpation. No CVA tenderness. [] Extremities: No tenderness, no cyanosis, no clubbing, ROM intact, no edema. [] Neurologic: Alert and oriented X 3, normal motor function, normal sensory function, no focal deficits noted. [] Psychologic: Affect normal, judgement normal, mood normal. [] Current Patient Data Vital Signs Vital Signs Date Time Temp Pulse Resp B/P (MAP) Pulse Ox O2 Delivery O2 Flow Rate FiO2 09/03/18 07:38 97.7 76 18 100 Room Air EKG EKG [] Radiology/Procedures Radiology/Procedures [] Course & Med Decision Making Course & Med Decision Making Pertinent Labs and Imaging studies reviewed. (See chart for details) Medical decision making: Given that the patient has had previous imaging in May 2018 without any acute features and there has been no trauma and no acute loss of bowel or bladder control, do not believe that additional imaging is necessary at this time. There is no evidence of cauda equina syndrome, no evidence of an acute fracture or subluxation. Patient may have C. difficile from the antibiotics. Not able to provide a stool sample while in the emergency department. We'll give her a cup so that this can be evaluated for by her primary care team.[] Dragon Disclaimer Dragon Disclaimer This electronic medical record was generated, in whole or in part, using a voice recognition dictation system. Departure Departure: Impression: Primary Impression: Back pain Disposition: 01 HOME, SELF-CARE Condition: IMPROVED Referrals: DOMINGO NÚÑEZ (PCP) Follow-up in 2 days Patient Instructions: Back Exercises, Generic, SportsMed, Back Pain, Adult Additional Instructions: Follow-up with your regular doctor in 2 days. Drink plenty of fluids. Avoid fatty foods, pepper, and milk. Take a stool sample to your primary care physician's office to have it evaluated for Clostridium difficile. Return to the ER if worsening pain, blood in the stool, loss of bowel or bladder control, or any other concerns. Scripts Meloxicam (MELOXICAM) 7.5 Mg Tablet 7.5 MG PO DAILY for PAIN, #20 TAB Prov: DARWIN SOSA DO 09/03/18 Cyclobenzaprine Hcl (CYCLOBENZAPRINE HCL) 5 Mg Tablet 1 TAB PO TID for back pain and spasm, #30 TAB Prov: ADRWIN SOSA DO 09/03/18 Problem Qualifiers Primary Impression: Back pain Back pain location: low back pain Chronicity: unspecified Back pain laterality: right Sciatica presence: without sciatica Qualified Codes: M54.5 - Low back pain DARWIN SOSA DO Sep 03, 2018 08:11
== END 2018-09-03 08:30 | disposition home or self-care (01) ==
LOC: ER 07:38
DX: M54.5 Low back pain (principal); R19.7 Diarrhea, unspecified; M19.90 Unspecified osteoarthritis, unspecified site; I13.10 Hypertensive heart and chronic kidney disease without heart failure, with stage 1 through stage 4 chronic kidney disease, or unspecified chronic kidney disease; N18.9 Chronic kidney disease, unspecified
CPT/HCPCS: 36415; 87045; 87493; 99284

== ENCOUNTER → 2018-12-18 | Outpatient (CLI) | payer MEDICARE, BC ==
[~2018-12-18] MED LIST changes: +CYCL5TAB PO; +MELO7.5T29 PO; +OMEP20CA10 PO; -OMEP20CA9 PO
--- NOTE | 2018-12-22 09:00 | RAD ---
DATE: 12/18/2018 3:19 PM EXAM: MAMMO HAYES SCREENING BILATERAL HISTORY: routine screening evaluation. COMPARISON: Prior mammographic imaging 10/07/2015, 12/16/2017 Bilateral CC and MLO views of the breasts were performed. Bilateral breast tomosynthesis was performed in CC and MLO projections. This study was interpreted with the benefit of Computerized Aided Detection (CAD). FINDINGS: Breast Density: HETERO The breast parenchyma Is heterogeneously dense, which could reduce sensitivity of mammography. Breast parenchyma level C Benign calcifications are present. The parenchymal pattern appears stable. No suspicious masses, microcalcifications or architectural distortion is present to suggest malignancy in either breast. The visualized axillae are unremarkable. IMPRESSION: No mammographic evidence of malignancy. BI-RADS CATEGORY: 2 BENIGN FINDING(S) RECOMMENDED FOLLOW-UP: 12M 12 MONTH FOLLOW-UP Annual screening mammography is recommended, unless clinically indicated sooner based on symptoms or change in physical exam. PQRS compliance statement: Patient information was entered into a reminder system with a target due date for the next mammogram. Mammography is a sensitive method for finding small breast cancers, but it does not detect them all and is not a substitute for careful clinical examination. A negative mammogram does not negate a clinically suspicious finding and should not result in delay in biopsying a clinically suspicious abnormality. "Our facility is accredited by the [employer] Mammography [employer]."
== END | disposition home or self-care (01) ==
LOC: MAMMO 14:50
PROVIDERS: ATTEND Physician Assistant
DX: Z12.31 Encounter for screening mammogram for malignant neoplasm of breast (principal)
CPT/HCPCS: 77063; 77067

== ENCOUNTER → 2019-08-07 | Outpatient (CLI) | payer MEDICARE, BC ==
[~2019-08-07] MED LIST changes: +MAGN296S68 PO; -MAGN296S9 PO; -OMEP20CA10 PO; +OMEP20CA16 PO; +POTA10TA12 PO; -POTA10TA31 PO
--- NOTE | 2019-08-07 09:56 | RAD ---
Examination: MANDIBLE COMPLETE 4+V History: Left jaw pain Comparison/Correlation: None Findings: Total of 4 images of the mandible were obtained. Bony structures are intact. No displaced fracture or bone destruction. Temporomandibular joint spaces are adequate with no significant degenerative findings for the patient's age. Soft tissues are unremarkable. Impression: No suspicious process. Consider further imaging if symptoms warrant. Electronically signed by: Lorenzo Craig MD (08/07/2019 9:53 AM) [id number]
== END | disposition home or self-care (01) ==
LOC: RAD 09:22
PROVIDERS: ATTEND Physician Assistant Medical
DX: R68.84 Jaw pain (principal); R51 Headache
CPT/HCPCS: 70110

== ENCOUNTER → 2019-08-09 | Outpatient (CLI) | payer MEDICARE, BC ==
[2019-08-09 09:18] LABS: ALBUMIN 3.6 g/dL (3.4-5.0); ALBUMIN/GLOBULIN RATIO 1.1 (1.0-1.7); CALCIUM 9.2 mg/dL (8.5-10.1); CREATININE 1.5 mg/dL (0.6-1.0); POTASSIUM 4.5 mmol/L (3.5-5.1); TOTAL BILIRUBIN 0.3 mg/dL (0.2-1.0); TOTAL PROTEIN 6.8 g/dL (6.4-8.2)
== END | disposition home or self-care (01) ==
LOC: LAB 07:19
PROVIDERS: ATTEND Nurse Practitioner
DX: I12.9 Hypertensive chronic kidney disease with stage 1 through stage 4 chronic kidney disease, or unspecified chronic kidney disease (principal); N18.3 Chronic kidney disease, stage 3 (moderate); E79.0 Hyperuricemia without signs of inflammatory arthritis and tophaceous disease; R33.9 Retention of urine, unspecified; E78.5 Hyperlipidemia, unspecified; Z68.31 Body mass index [BMI] 31.0-31.9, adult
CPT/HCPCS: 36415; 80053; 80061

== ENCOUNTER → 2019-08-09 | Outpatient (CLI) | payer MEDICARE, BC ==
[2019-08-09 08:54] LABS: BASO % 1 % (0-3); EOS # 0.2 x10^3/uL (0.0-0.7); EOS % 3 % (0-3); HEMATOCRIT 36.9 % (36.0-47.0); HEMOGLOBIN 12.2 g/dL (12.0-15.5); LYMPH # 1.5 x10^3/uL (1.0-4.8); LYMPH % 22 % (24-48); MEAN CORPUSCULAR HEMOGLOBIN 32 pg (25-35); MEAN CORPUSCULAR HGB CONC 33 g/dL (31-37); MEAN CORPUSCULAR VOLUME 97 fL (79-100); MONO # 0.4 x10^3/uL (0.0-1.1); MONO % 7 % (0-9); NEUT # 4.5 x10^3uL (1.8-7.7); NEUT % 68 % (31-73); PLATELET COUNT 158 x10^3/uL (140-400); RED BLOOD COUNT 3.82 x10^6/uL (3.50-5.40); RED CELL DISTRIBUTION WIDTH 16.4 % (11.5-14.5); WHITE BLOOD COUNT 6.7 x10^3/uL (4.0-11.0)
[2019-08-09 09:19] LABS: ALBUMIN 3.6 g/dL (3.4-5.0); CALCIUM 9.3 mg/dL (8.5-10.1); CREATININE 1.4 mg/dL (0.6-1.0); GFR 35.7; PHOSPHORUS 4.6 mg/dL (2.6-4.7); POTASSIUM 4.5 mmol/L (3.5-5.1)
[2019-08-10 09:07] LABS: CALCIUM PTH 9.1 mg/dL (8.7-10.3); CREATININE PTH 1.43 mg/dL (0.57-1.00); PTH INTACT 33 pg/mL (15-65)
== END | disposition home or self-care (01) ==
LOC: LAB 07:21
PROVIDERS: ATTEND Internal Medicine Nephrology
DX: I12.9 Hypertensive chronic kidney disease with stage 1 through stage 4 chronic kidney disease, or unspecified chronic kidney disease (principal); N18.3 Chronic kidney disease, stage 3 (moderate); E79.0 Hyperuricemia without signs of inflammatory arthritis and tophaceous disease; R33.9 Retention of urine, unspecified; Z68.31 Body mass index [BMI] 31.0-31.9, adult
CPT/HCPCS: 36415; 80069; 83970; 85025

== ENCOUNTER → 2019-12-19 | Outpatient (CLI) | payer MEDICARE, BC ==
--- NOTE | 2019-12-20 16:33 | RAD ---
DATE: 12/19/2019 1:15 PM EXAM: DIGITAL SCREEN BILAT W/CAD HISTORY: Screening COMPARISON: 12/18/2018 Bilateral full field craniocaudal and mediolateral oblique images were obtained using digital technique. This study was interpreted with the benefit of Computerized Aided Detection (CAD). FINDINGS: Breast Density: SCATTERED The breast parenchyma shows scattered fibroglandular densities. Breast parenchyma level B No suspicious masses, microcalcifications or architectural distortion is present to suggest malignancy in either breast. The visualized axillae are unremarkable. IMPRESSION: No mammographic evidence of malignancy. BI-RADS CATEGORY: 1 NEGATIVE RECOMMENDED FOLLOW-UP: 12M 12 MONTH FOLLOW-UP Annual screening mammography is recommended, unless clinically indicated sooner based on symptoms or change in physical exam. PQRS compliance statement: Patient information was entered into a reminder system with a target due date for the next mammogram. Mammography is a sensitive method for finding small breast cancers, but it does not detect them all and is not a substitute for careful clinical examination. A negative mammogram does not negate a clinically suspicious finding and should not result in delay in biopsying a clinically suspicious abnormality. "Our facility is accredited by the [employer] Mammography [employer]."
== END | disposition home or self-care (01) ==
LOC: MAMMO 13:10
PROVIDERS: ATTEND Physician Assistant
DX: Z12.31 Encounter for screening mammogram for malignant neoplasm of breast (principal)
CPT/HCPCS: 77067

== ENCOUNTER → 2020-02-07 | Outpatient (CLI) | payer MEDICARE, BC | END | disposition home or self-care (01) | LOC: LAB 13:40 | PROVIDERS: ATTEND Internal Medicine Nephrology | DX: N18.30 Chronic kidney disease, stage 3 unspecified (principal); I10 Essential (primary) hypertension | CPT/HCPCS: 36415; 84550 ==

== ENCOUNTER → 2020-02-21 | Outpatient (CLI) | payer MEDICARE, BC ==
[2020-02-21 14:50] LABS: ALBUMIN 3.6 g/dL (3.4-5.0); CALCIUM 8.7 mg/dL (8.5-10.1); CREATININE 1.4 mg/dL (0.6-1.0); GFR 35.7; HEMATOCRIT 38.6 % (36.0-47.0); HEMOGLOBIN 12.5 g/dL (12.0-15.5); PHOSPHORUS 4.1 mg/dL (2.6-4.7); POTASSIUM 3.7 mmol/L (3.5-5.1)
[2020-02-22 01:07] LABS: CALCIUM PTH 9.1 mg/dL (8.7-10.3); CREATININE PTH 1.33 mg/dL (0.57-1.00); PTH INTACT 87 pg/mL (15-65)
== END ==
LOC: LAB 13:10
PROVIDERS: ATTEND Nurse Practitioner Adult Health
DX: I48.19 Other persistent atrial fibrillation (principal); I50.32 Chronic diastolic (congestive) heart failure; E78.5 Hyperlipidemia, unspecified; N18.31 Chronic kidney disease, stage 3a
CPT/HCPCS: 36415; 80069; 83970; 85014; 85018

== ENCOUNTER → 2020-08-07 | Outpatient (CLI) | payer MEDICARE, BC ==
[~2020-08-07] MED LIST changes: -LISI-338 PO; +LISI-517 PO
[2020-08-07 11:45] LABS: BASO % 0 % (0-3); EOS # 0.1 x10^3/uL (0.0-0.7); EOS % 2 % (0-3); HEMATOCRIT 40.5 % (36.0-47.0); HEMOGLOBIN 13.2 g/dL (12.0-15.5); LYMPH # 1.6 x10^3/uL (1.0-4.8); LYMPH % 26 % (24-48); MEAN CORPUSCULAR HEMOGLOBIN 31 pg (25-35); MEAN CORPUSCULAR HGB CONC 33 g/dL (31-37); MEAN CORPUSCULAR VOLUME 96 fL (79-100); MONO # 0.5 x10^3/uL (0.0-1.1); MONO % 8 % (0-9); NEUT # 3.9 x10^3uL (1.8-7.7); NEUT % 63 % (31-73); PLATELET COUNT 147 x10^3/uL (140-400); RED BLOOD COUNT 4.23 x10^6/uL (3.50-5.40); RED CELL DISTRIBUTION WIDTH 16.6 % (11.5-14.5); WHITE BLOOD COUNT 6.2 x10^3/uL (4.0-11.0)
[2020-08-07 12:09] LABS: ALBUMIN 3.9 g/dL (3.4-5.0); CALCIUM 9.2 mg/dL (8.5-10.1); CREATININE 1.3 mg/dL (0.6-1.0); GFR 38.8; PHOSPHORUS 4.3 mg/dL (2.6-4.7); POTASSIUM 3.7 mmol/L (3.5-5.1); URIC ACID 3.9 mg/dL (2.6-6.0)
[2020-08-08 19:20] LABS: CALCIUM PTH 9.4 mg/dL (8.7-10.3); CREATININE PTH 1.31 mg/dL (0.57-1.00); PTH INTACT 86 pg/mL (15-65)
== END ==
LOC: LAB 09:43
PROVIDERS: ATTEND Nurse Practitioner Adult Health
DX: I12.9 Hypertensive chronic kidney disease with stage 1 through stage 4 chronic kidney disease, or unspecified chronic kidney disease (principal); N18.32 Chronic kidney disease, stage 3b; E79.0 Hyperuricemia without signs of inflammatory arthritis and tophaceous disease; R33.9 Retention of urine, unspecified; Z68.31 Body mass index [BMI] 31.0-31.9, adult
CPT/HCPCS: 36415; 80069; 82728; 83540; 83550; 83970; 84550; 85025

== ENCOUNTER → 2020-09-18 | Day surgery (SDC) | payer MEDICARE, BC ==
[~2020-09-18] MED LIST changes: +ACETAMINOPHEN 500 MG TABLET PO PRN; +AMLO2.5T5 PO; +APIX2.5T PO; +BALANCED SALT IRRIG SOLN NO.2 500 ML IO ONE; +BENZONATATE 100 MG CAPSULE. PO PRN; +BRIMONIDINE 0.2% OPHTH SOLUTION 5ML BOTTLE. OS ONE; +CEFUROXIME OPHTH 4 MG/0.4 ML SYRINGE. OS ONE; +CHOL10004 PO; +CHONDROIT-SOD-HYALURONATE KIT. OS ONE; +COLE1TAB PO; +DOFE125C PO; +IBUPROFEN 200 MG TABLET PO PRN; +IPRATRPIUM/ALBUTEROL 0.5/2.5MG 3 ML NEBU. NEB PRN; +IV RINGERS SOLUTION,LACTATED 1,000 ML IV SCH; +LACT1CAP29 PO; +LIDO/EPI IN BSS OPHTH 2.7 ML SYRINGE. OS ONE; +LIDOCAINE 2% JELLY 6ML IN APPLICATOR. ONE; +METO50TA29 PO; +MIDAZOLAM HCL PF 2 MG/2 ML VIAL. IV ONE; +MIDAZOLAM HCL PF 2 MG/2 ML VIAL. ONE; +PHENYLEPHRINE 10% OPHTH SOLUTION 5ML BOTTLE. OS PRN; +POVIDONE-IODINE 5% OPHTH SOLUTION 30ML BOTTLE. OS ONE; +POVIDONE-IODINE 5% OPHTH SOLUTION 30ML BOTTLE. OS PRN; +PROPARACAINE 0.5% OPHTH SOLUTION 15ML BOTTLE. OS ONE; +PROPARACAINE 0.5% OPHTH SOLUTION 15ML BOTTLE. OS PRN; +TRAM50TA PO; +prednisoLONE ACETATE 1% OPHTH SUSPENSION 5ML BOTTLE. OS ONE
[2020-09-18] MEDS: PHENYLEPHRINE 2.5% OPHTH SOLUTION 2ML BOTTLE. OS SCH ×3 (08:25→08:35)
[2020-09-18] MEDS: KETOROLAC TROMETHAMINE 0.5% OPHTH SOLUTION BOTTLE. OS SCH ×2 (08:25→08:29)
[2020-09-18] MEDS: TOBRAMYCIN 0.3% OPHTH SOLUTION 5ML BOTTLE. OS SCH ×2 (08:25→08:29)
[2020-09-18] MEDS: TROPICAMIDE 1% OPHTH SOLUTION 15ML BOTTLE. OS SCH ×3 (08:25→08:35)
--- NOTE | 2020-09-18 09:49 | PDOC4 ---
SURGEON: Nataliia Haider MD Date of Procedure: 09/18/20 PREOP Diagnosis Visually significant cataract: Left Eye OS Pre-existing astigmatism: Left Eye OS PROCEDURE: Phaco w/ posterior chamber IOL: Left Eye OS ANESTHESIA Deep forniceal periocular 2% Lidocaine jelly Candida/retro bulbar block with 2% Lidocaine with 0.5% Marcaine DESCRIPTION OF PROCEDURE The risks, benefits, and alternatives were discussed with the patient who oumar cted to proceed. Informed consent was obtained in writing and placed in the chart After anesthetizing the eye topically, the patient was taken to the operating room, and the operative eye was prepped and draped in the usual sterile fashion for ocular surgery. A wire lid speculum was placed. A 1-mm clear corneal paracentesis incision was created with the side-port blade at a position three o'clock hours clockwise from the temporal cornea. Then, 1% non-preserved Lidocaine with epinephrine was injected into the anterior chamber followed by viscoelastic. Cotton-tipped applicators were used to stabilize the globe, and a 2.4 mm keratome was used to create a self-sealing incision in clear cornea at the temporal limbus. The Utrata forceps were used to create a continuous curvilinear capsulorrhexis. Balanced saline solution was injected via cannula beneath the capsulorrhexis edge to hydrodissect the lens nucleus and cortex from the lens capsule. The phacoemulsification handpiece and a chopping instrument were then used to remove the lens nucleus. The remaining epinuclear material and cortex were removed with the irrigation/aspiration handpiece. Viscoelastic was used to re-inflate the lens capsule, and the intraocular lens was injected directly into the capsular bag. The corneal wound edges were hydrated with balanced salt solution on a cannula and the irrigation/aspiration handpiece was used to extract the remaining viscoelastic. Cefuroxime 0.1mg/ml / Vigamox 0.5% was injected into the anterior chamber intracamerally. The wounds were inspected and found to be watertight at an appropriate intraocular pressure. Topical antibiotic drops were placed on the corneal surface. LRI: No If Yes, Number [] [place] [] Length [] degrees Depth [] microns Incision [place]: 180 Toric Lens [place] [[id number]] Patch/shield with Maxitrol/Tobradex/Erythromycin ointment: Yes No Co-managed patients/postop examination stable for co-management with referring doctor. EBL EBL: None SPECIMANS COLLECTED Specimens Collected: None NATALIIA HAIDER MD September 18, 2020 09:49
[2020-09-18 10:00] VITALS: BP 178/87
== END | disposition home or self-care (01) ==
LOC: SURG 08:04
PROVIDERS: ATTEND Ophthalmology
DX: H25.12 Age-related nuclear cataract, left eye (principal); H52.202 Unspecified astigmatism, left eye; E78.00 Pure hypercholesterolemia, unspecified; G47.33 Obstructive sleep apnea (adult) (pediatric); I13.0 Hypertensive heart and chronic kidney disease with heart failure and stage 1 through stage 4 chronic kidney disease, or unspecified chronic kidney disease; I50.32 Chronic diastolic (congestive) heart failure; N18.32 Chronic kidney disease, stage 3b; M19.90 Unspecified osteoarthritis, unspecified site; K21.9 Gastro-esophageal reflux disease without esophagitis; M10.9 Gout, unspecified; Z90.722 Acquired absence of ovaries, bilateral; Z90.49 Acquired absence of other specified parts of digestive tract; Z79.899 Other long term (current) drug therapy; Z90.710 Acquired absence of both cervix and uterus; Z87.440 Personal history of urinary (tract) infections
CPT/HCPCS: 66984; J2250; V2632

== ENCOUNTER → 2020-10-02 | Day surgery (SDC) | payer MEDICARE, BC ==
[~2020-10-02] MED LIST changes: +BRIMONIDINE 0.2% OPHTH SOLUTION 5ML BOTTLE. OD ONE; -BRIMONIDINE 0.2% OPHTH SOLUTION 5ML BOTTLE. OS ONE; +CEFUROXIME OPHTH 4 MG/0.4 ML SYRINGE. OD ONE; -CEFUROXIME OPHTH 4 MG/0.4 ML SYRINGE. OS ONE; +CHONDROIT-SOD-HYALURONATE KIT. OD ONE; -CHONDROIT-SOD-HYALURONATE KIT. OS ONE; -LACT1CAP29 PO; +LACT1CAP37 PO; +LIDO/EPI IN BSS OPHTH 2.7 ML SYRINGE. OD ONE; -LIDO/EPI IN BSS OPHTH 2.7 ML SYRINGE. OS ONE; +PHENYLEPHRINE 10% OPHTH SOLUTION 5ML BOTTLE. OD PRN; -PHENYLEPHRINE 10% OPHTH SOLUTION 5ML BOTTLE. OS PRN; +POVIDONE-IODINE 5% OPHTH SOLUTION 30ML BOTTLE. OD ONE; +POVIDONE-IODINE 5% OPHTH SOLUTION 30ML BOTTLE. OD PRN; +POVIDONE-IODINE 5% OPHTH SOLUTION 30ML BOTTLE. ONE; -POVIDONE-IODINE 5% OPHTH SOLUTION 30ML BOTTLE. OS ONE; -POVIDONE-IODINE 5% OPHTH SOLUTION 30ML BOTTLE. OS PRN; +PROPARACAINE 0.5% OPHTH SOLUTION 15ML BOTTLE. OD ONE; +PROPARACAINE 0.5% OPHTH SOLUTION 15ML BOTTLE. OD PRN; -PROPARACAINE 0.5% OPHTH SOLUTION 15ML BOTTLE. OS ONE; -PROPARACAINE 0.5% OPHTH SOLUTION 15ML BOTTLE. OS PRN; +prednisoLONE ACETATE 1% OPHTH SUSPENSION 5ML BOTTLE. OD ONE; -prednisoLONE ACETATE 1% OPHTH SUSPENSION 5ML BOTTLE. OS ONE
[2020-10-02] MEDS: PHENYLEPHRINE 2.5% OPHTH SOLUTION 2ML BOTTLE. OD SCH ×3 (07:17→07:28)
[2020-10-02] MEDS: TROPICAMIDE 1% OPHTH SOLUTION 15ML BOTTLE. OD SCH ×3 (07:17→07:28)
[2020-10-02] MEDS: TOBRAMYCIN 0.3% OPHTH SOLUTION 5ML BOTTLE. OD SCH ×2 (07:17→07:23)
[2020-10-02] MEDS: KETOROLAC TROMETHAMINE 0.5% OPHTH SOLUTION BOTTLE. OD SCH ×2 (07:17→07:22)
--- NOTE | 2020-10-02 08:27 | PDOC4 ---
SURGEON: Nataliia Haider MD Date of Procedure: 10/02/20 PREOP Diagnosis Visually significant cataract: Right Eye OD Pre-existing astigmatism: Right Eye OD POSTOP Diagnosis Same PROCEDURE: Phaco w/ posterior chamber IOL: Right Eye OD ANESTHESIA Deep forniceal periocular 2% Lidocaine jelly Candida/retro bulbar block with 2% Lidocaine with 0.5% Marcaine DESCRIPTION OF PROCEDURE The risks, benefits, and alternatives were discussed with the patient who elected to proceed. Informed consent was obtained in writing and placed in the chart After anesthetizing the eye topically, the patient was taken to the operating room, and the operative eye was prepped and draped in the usual sterile fashion for ocular surgery. A wire lid speculum was placed. A 1-mm clear corneal paracentesis incision was created with the side-port blade at a position three o'clock hours clockwise from the temporal cornea. Then, 1% non-preserved Lidocaine with epinephrine was injected into the anterior chamber followed by viscoelastic. Cotton-tipped applicators were used to stabilize the globe, and a 2.4 mm keratome was used to create a self-sealing incision in clear cornea at the temporal limbus. The Utrata forceps were used to create a continuous curvilinear capsulorrhexis. Balanced saline solution was injected v ia cannula beneath the capsulorrhexis edge to hydrodissect the lens nucleus and cortex from the lens capsule. The phacoemulsification handpiece and a chopping instrument were then used to remove the lens nucleus. The remaining epinuclear material and cortex were removed with the irrigation/aspiration handpiece. Viscoelastic was used to re-inflate the lens capsule, and the intraocular lens was injected directly into the capsular bag. The corneal wound edges were hydrated with balanced salt solution on a cannula and the irrigation/aspiration handpiece was used to extract the remaining viscoelastic. Cefuroxime 0.1mg/ml / Vigamox 0.5% was injected into the anterior chamber intracamerally. The wounds were inspected and found to be watertight at an appropriate intraocular pressure. Topical antibiotic drops were placed on the corneal surface. LRI: No If Yes, Number [] [place] [] Length [] degrees Depth [] microns Incision [place]: 180 Toric Lens [place] [[id number]] Patch/shield with Maxitrol/Tobradex/Erythromycin ointment: 2 Yes No Co-managed patients/postop examination stable for co-management with referring doctor. EBL EBL: None SPECIMANS COLLECTED Specimens Collected: None NATALIIA HAIDER MD October 02, 2020 08:27
[2020-10-02 08:38] VITALS: BP 133/62
== END | disposition home or self-care (01) ==
LOC: SURG 07:01
PROVIDERS: ATTEND Ophthalmology
DX: H25.11 Age-related nuclear cataract, right eye (principal); H52.201 Unspecified astigmatism, right eye; E78.00 Pure hypercholesterolemia, unspecified; I13.0 Hypertensive heart and chronic kidney disease with heart failure and stage 1 through stage 4 chronic kidney disease, or unspecified chronic kidney disease; N18.9 Chronic kidney disease, unspecified; I50.32 Chronic diastolic (congestive) heart failure; I48.19 Other persistent atrial fibrillation; M19.90 Unspecified osteoarthritis, unspecified site; M10.9 Gout, unspecified; G47.33 Obstructive sleep apnea (adult) (pediatric); K21.9 Gastro-esophageal reflux disease without esophagitis; Z79.899 Other long term (current) drug therapy; Z87.440 Personal history of urinary (tract) infections; Z90.722 Acquired absence of ovaries, bilateral; Z90.49 Acquired absence of other specified parts of digestive tract; Z90.710 Acquired absence of both cervix and uterus
CPT/HCPCS: 66984; J2250; V2632

== ENCOUNTER → 2020-12-19 | Outpatient (CLI) | payer MEDICARE, BC ==
[2020-10-02 08:38] VITALS: BP 133/62
[~2020-12-19] MED LIST changes: -ACETAMINOPHEN 500 MG TABLET PO PRN; -BALANCED SALT IRRIG SOLN NO.2 500 ML IO ONE; -BENZONATATE 100 MG CAPSULE. PO PRN; -BRIMONIDINE 0.2% OPHTH SOLUTION 5ML BOTTLE. OD ONE; -CEFUROXIME OPHTH 4 MG/0.4 ML SYRINGE. OD ONE; -CHONDROIT-SOD-HYALURONATE KIT. OD ONE; -IBUPROFEN 200 MG TABLET PO PRN; -IPRATRPIUM/ALBUTEROL 0.5/2.5MG 3 ML NEBU. NEB PRN; -IV RINGERS SOLUTION,LACTATED 1,000 ML IV SCH; -LIDO/EPI IN BSS OPHTH 2.7 ML SYRINGE. OD ONE; -LIDOCAINE 2% JELLY 6ML IN APPLICATOR. ONE; -MIDAZOLAM HCL PF 2 MG/2 ML VIAL. IV ONE; -MIDAZOLAM HCL PF 2 MG/2 ML VIAL. ONE; -PHENYLEPHRINE 10% OPHTH SOLUTION 5ML BOTTLE. OD PRN; -POVIDONE-IODINE 5% OPHTH SOLUTION 30ML BOTTLE. OD ONE; -POVIDONE-IODINE 5% OPHTH SOLUTION 30ML BOTTLE. OD PRN; -POVIDONE-IODINE 5% OPHTH SOLUTION 30ML BOTTLE. ONE; -PROPARACAINE 0.5% OPHTH SOLUTION 15ML BOTTLE. OD ONE; -PROPARACAINE 0.5% OPHTH SOLUTION 15ML BOTTLE. OD PRN; -prednisoLONE ACETATE 1% OPHTH SUSPENSION 5ML BOTTLE. OD ONE
--- NOTE | 2020-12-19 14:33 | RAD ---
EXAM: BILATERAL DIGITAL SCREENING MAMMOGRAPHY. HISTORY: Routine mammographic screening. TECHNIQUE: Bilateral full field digital images were obtained in CC and MLO projections. Computer-aide d detection was applied. COMPARISON: 12/19/2019, 12/18/2018, 12/16/2017. COMPOSITION: B. There are scattered areas of fibroglandular density. FINDINGS: There are no suspicious masses, microcalcifications or architectural distortion. The parenc hymal pattern is stable. A postbiopsy clip is again noted medially. Scattered and vascular calcificat ions are benign. BI-RADS CATEGORY 2: Benign. RECOMMENDATION: 1. Routine screening mammography in one year. If mammography demonstrates dense breast tissue (heterogenously dense or extremely dense, category C or D), which could hide abnormalities, and if other risk factors for breast cancer have been identifi ed, supplemental screening tests that may be suggested by the ordering physician may be of benefit. D ense breast tissue, in and of itself, is a relatively common condition. Therefore, this information i s not provided to cause undue concern, but rather to raise awareness and to promote discussion with t he referring physician regarding the presence of other risk factors, in addition to dense breast tiss ue. The results of this mammography examination is provided to the patient and referring physician. T he patient should contact their referring physician if any questions or concerns exist regarding this report. PQRS compliance statement - Patient information was entered into a reminder system with a target due date for the next mammogram. "Our facility is accredited by the [employer] Mammography Program." Electronically signed by: Yeyo Malik MD (12/19/2020 2:30 PM) [email or web address]
== END ==
LOC: MAMMO 13:10
PROVIDERS: ATTEND Physician Assistant
DX: Z12.31 Encounter for screening mammogram for malignant neoplasm of breast (principal)
CPT/HCPCS: 77067

== ENCOUNTER → 2021-01-23 | Outpatient (CLI) | payer MEDICARE, BC ==
[2020-10-02 08:38] VITALS: BP 133/62
--- NOTE | 2021-01-23 13:23 | RAD ---
Lumbar spine 3 views. HISTORY: Low back pain 3 views were taken of the lumbar spine. There is mild scoliosis convex the left. There is no acute jon mbar fracture. Lumbar spines in normal alignment on the lateral view. There is degenerative and hyper trophic changes at T12-L1 and L1-2. There is a right upper quadrant density which could be a tablet w ithin the bowel. IMPRESSION: 1. Mild scoliosis. 2. Degenerative changes at the thoracolumbar junction. 3. No acute lumbar fracture. Electronically signed by: Glen Solorio MD (01/23/2021 1:20 PM) [id number]
== END ==
LOC: PMG 11:55
PROVIDERS: ATTEND Physician Assistant
DX: M47.815 Spondylosis without myelopathy or radiculopathy, thoracolumbar region (principal); M41.86 Other forms of scoliosis, lumbar region
CPT/HCPCS: 72100

== ENCOUNTER → 2021-02-06 | Outpatient (CLI) | payer MEDICARE, BC ==
[2020-10-02 08:38] VITALS: BP 133/62
[2021-02-06 11:28] LABS: BASO % 1 % (0-3); EOS # 0.1 x10^3/uL (0.0-0.7); EOS % 2 % (0-3); HEMATOCRIT 37.4 % (36.0-47.0); HEMOGLOBIN 12.3 g/dL (12.0-15.5); LYMPH # 1.6 x10^3/uL (1.0-4.8); LYMPH % 25 % (24-48); MEAN CORPUSCULAR HEMOGLOBIN 32 pg (25-35); MEAN CORPUSCULAR HGB CONC 33 g/dL (31-37); MEAN CORPUSCULAR VOLUME 96 fL (79-100); MONO # 0.5 x10^3/uL (0.0-1.1); MONO % 7 % (0-9); NEUT # 4.3 x10^3uL (1.8-7.7); NEUT % 66 % (31-73); PLATELET COUNT 132 x10^3/uL (140-400); RED BLOOD COUNT 3.88 x10^6/uL (3.50-5.40); RED CELL DISTRIBUTION WIDTH 16.2 % (11.5-14.5); WHITE BLOOD COUNT 6.5 x10^3/uL (4.0-11.0)
[2021-02-06 11:34] LABS: ALBUMIN 3.6 g/dL (3.4-5.0); CALCIUM 9.4 mg/dL (8.5-10.1); CREATININE 0.9 mg/dL (0.6-1.0); GFR 59.4; PHOSPHORUS 4.1 mg/dL (2.6-4.7); POTASSIUM 4.8 mmol/L (3.5-5.1); URIC ACID 3.1 mg/dL (2.6-6.0)
[2021-02-07 16:09] LABS: CALCIUM PTH 9.2 mg/dL (8.7-10.3); CREATININE PTH 0.99 mg/dL (0.57-1.00); PTH INTACT 38 pg/mL (15-65)
== END ==
LOC: LAB 10:01
PROVIDERS: ATTEND Internal Medicine Nephrology
DX: I12.9 Hypertensive chronic kidney disease with stage 1 through stage 4 chronic kidney disease, or unspecified chronic kidney disease (principal); E21.1 Secondary hyperparathyroidism, not elsewhere classified; N18.32 Chronic kidney disease, stage 3b; E79.0 Hyperuricemia without signs of inflammatory arthritis and tophaceous disease; Z68.32 Body mass index [BMI] 32.0-32.9, adult
CPT/HCPCS: 36415; 80069; 83970; 84550; 85025

== ENCOUNTER → 2021-03-25 | Outpatient (CLI) | payer MEDICARE, BC ==
[2020-10-02 08:38] VITALS: BP 133/62
[~2021-03-25] MED LIST changes: -LISI-517 PO; +LISI5TAB15 PO
[2021-03-25 08:35] LABS: ALBUMIN 3.8 g/dL (3.4-5.0); ALBUMIN/GLOBULIN RATIO 1.2 (1.0-1.7); CALCIUM 9.4 mg/dL (8.5-10.1); CREATININE 1.1 mg/dL (0.6-1.0); GFR 47.1; TOTAL BILIRUBIN 0.5 mg/dL (0.2-1.0); TOTAL PROTEIN 7.1 g/dL (6.4-8.2)
== END ==
LOC: LAB 07:46
PROVIDERS: ATTEND Nurse Practitioner
DX: E78.5 Hyperlipidemia, unspecified (principal)
CPT/HCPCS: 36415; 80053; 80061

== ENCOUNTER → 2021-07-31 | Outpatient (CLI) | payer MEDICARE, BC ==
[2020-10-02 08:38] VITALS: BP 133/62
--- NOTE | 2021-08-01 14:36 | RAD ---
Chest PA and lateral: Reason for examination: Cough The heart size is normal. Mediastinum is unremarkable. Lung culver show a linear density which may re flect linear atelectasis or scarring at the left lingula. No other infiltrates, congestion, pleural e ffusions or pneumothorax are seen. No acute bony abnormalities are seen. Impression: Linear atelectasis or scarring in the left lingula. No other focal abnormality seen in the chest Electronically signed by: Gale Laws MD (08/01/2021 2:34 PM) [facility]
== END ==
LOC: RAD 10:28
PROVIDERS: ATTEND Physician Assistant
DX: N64.4 Mastodynia (principal); R07.89 Other chest pain
CPT/HCPCS: 71046

== ENCOUNTER → 2021-08-10 | Outpatient (CLI) | payer MEDICARE, BC ==
[2020-10-02 08:38] VITALS: BP 133/62
--- NOTE | 2021-08-10 10:34 | RAD ---
EXAMINATION: US BREAST BILAT, MG DIAGNOSTIC BILAT CLINICAL HISTORY: Bilateral breast pain since April 2021 TECHNIQUE: Digital craniocaudal and mediolateral oblique views of the bilateral breasts obtained. Tar geted ultrasound of the bilateral breasts also performed. COMPARISON: Mammograms 12/19/2020, 12/19/2019, 12/18/2018, 12/16/2017 BREAST COMPOSITION: There are scattered areas of fibroglandular density. FINDINGS: BILATERAL DIAGNOSTIC MAMMOGRAM: No evidence of suspicious mass, calcifications, or areas of architectural distortion. Biopsy marker c lip in the lateral right breast remains in similar position. BILATERAL BREAST ULTRASOUND: Several tiny cysts seen in the area of concern within the right breast at 11:00 position 1-2 cm from the nipple. No discrete abnormality appreciated in the area of concern within the left breast at 9:00 position 8 cm from the nipple. No suspicious axillary lymph nodes. IMPRESSION: No evidence of malignancy. BI-RADS ASSESSMENT: Category 2: Benign RECOMMENDATION: Recommend clinical management of bilateral breast pain and return for routine bilateral screening [facility] in one year. PQRS compliance statement - Patient information was entered into a reminder system with a target due date for the next mammogram. "Our facility is accredited by the [employer] Mammography [employer]." Electronically signed by: Meet Dunham DO (08/10/2021 10:32 AM) [facility]
--- NOTE | 2021-08-10 10:34 | RAD ---
EXAMINATION: US BREAST BILAT, MG DIAGNOSTIC BILAT CLINICAL HISTORY: Bilateral breast pain since April 2021 TECHNIQUE: Digital craniocaudal and mediolateral oblique views of the bilateral breasts obtained. Tar geted ultrasound of the bilateral breasts also performed. COMPARISON: Mammograms 12/19/2020, 12/19/2019, 12/18/2018, 12/16/2017 BREAST COMPOSITION: There are scattered areas of fibroglandular density. FINDINGS: BILATERAL DIAGNOSTIC MAMMOGRAM: No evidence of suspicious mass, calcifications, or areas of architectural distortion. Biopsy marker c lip in the lateral right breast remains in similar position. BILATERAL BREAST ULTRASOUND: Several tiny cysts seen in the area of concern within the right breast at 11:00 position 1-2 cm from the nipple. No discrete abnormality appreciated in the area of concern within the left breast at 9:00 position 8 cm from the nipple. No suspicious axillary lymph nodes. IMPRESSION: No evidence of malignancy. BI-RADS ASSESSMENT: Category 2: Benign RECOMMENDATION: Recommend clinical management of bilateral breast pain and return for routine bilateral screening [facility] in one year. PQRS compliance statement - Patient information was entered into a reminder system with a target due date for the next mammogram. "Our facility is accredited by the [employer] Mammography Program." Electronically signed by: Meet Dunham DO (08/10/2021 10:32 AM) [facility]
== END ==
LOC: MAMMO 09:08
PROVIDERS: ATTEND Physician Assistant
DX: N60.01 Solitary cyst of right breast (principal); R07.89 Other chest pain
CPT/HCPCS: 77066; 76641-50

== ENCOUNTER → 2021-08-27 | Outpatient (CLI) | payer MEDICARE, BC ==
[2020-10-02 08:38] VITALS: BP 133/62
[2021-08-27 15:06] LABS: BASO % 0 % (0-3); EOS # 0.1 x10^3/uL (0.0-0.7); EOS % 1 % (0-3); HEMATOCRIT 39.7 % (36.0-47.0); HEMOGLOBIN 13.1 g/dL (12.0-15.5); LYMPH # 1.9 x10^3/uL (1.0-4.8); LYMPH % 27 % (24-48); MEAN CORPUSCULAR HEMOGLOBIN 32 pg (25-35); MEAN CORPUSCULAR HGB CONC 33 g/dL (31-37); MEAN CORPUSCULAR VOLUME 96 fL (79-100); MONO # 0.5 x10^3/uL (0.0-1.1); MONO % 8 % (0-9); NEUT # 4.6 x10^3uL (1.8-7.7); NEUT % 64 % (31-73); PLATELET COUNT 146 x10^3/uL (140-400); RED BLOOD COUNT 4.15 x10^6/uL (3.50-5.40); WHITE BLOOD COUNT 7.1 x10^3/uL (4.0-11.0)
[2021-08-27 15:35] LABS: ALBUMIN 3.6 g/dL (3.4-5.0); CALCIUM 8.9 mg/dL (8.5-10.1); CREATININE 1.2 mg/dL (0.6-1.0); GFR 42.5; PHOSPHORUS 4.5 mg/dL (2.6-4.7); POTASSIUM 3.4 mmol/L (3.5-5.1); URIC ACID 3.8 mg/dL (2.6-6.0)
[2021-08-28 14:08] LABS: CALCIUM PTH 9.4 mg/dL (8.7-10.3); CREATININE PTH 1.15 mg/dL (0.57-1.00); PTH INTACT 66 pg/mL (15-65)
[2021-08-28 15:47] LABS: CREATININE,RANDOM URINE 46.8 mg/dL (Not Establ.)
== END ==
LOC: LAB 13:27
PROVIDERS: ATTEND Nurse Practitioner Family
DX: I12.9 Hypertensive chronic kidney disease with stage 1 through stage 4 chronic kidney disease, or unspecified chronic kidney disease (principal); N18.31 Chronic kidney disease, stage 3a; E21.1 Secondary hyperparathyroidism, not elsewhere classified; E79.0 Hyperuricemia without signs of inflammatory arthritis and tophaceous disease; Z68.32 Body mass index [BMI] 32.0-32.9, adult
CPT/HCPCS: 36415; 80069; 82570; 83970; 84156; 84550; 85025